=== PATIENT | female | born 1970 | race Caucasian/White ===

== ENCOUNTER 2024-04-20 11:36 | Outpatient (OUT) | payer OTHER, SELFPAY ==
[2024-04-20 12:58] LABS: Estimated Average Glucose 108 mg/dL; Glycohemoglobin A1C 5.4 % (4.5-6.2)
[2024-04-20 13:12] LABS: Alanine Aminotransferase 30 U/L (14-59); Albumin Level 3.6 g/dL (3.4-5.0); Alkaline Phosphatase 100 U/L (46-116); Aspartate Amino Transferase 22 U/L (15-37); BUN Creatinine Ratio 26.7; Bilirubin Direct <0.1 mg/dL (0.0-0.2); Bilirubin Total 0.2 mg/dL (0.2-1.0); Calcium 9.4 mg/dL (8.5-10.1); Carbon Dioxide 28.6 mmol/L (21.0-32.0); Chloride 108 mmol/L (98-107); Chol HDL Ratio 4.6; Cholesterol 176 mg/dL (<=200); Estimated GFR (African America >60 (>=60 mL/min/1.73m^2); Estimated GFR (Non-African Ame 57 (>=60 mL/min/1.73m^2); Globulin 3.7 g/dL; Glucose 93 mg/dL (74-106); HDL Cholesterol 38 mg/dL (40-60); Potassium 3.6 mmol/L (3.5-5.1); Sodium 143 mmol/L (136-145); Thyroid Stimulating Hormone 5.143 uIU/mL (0.358-3.740); Total Protein 7.3 g/dL (6.4-8.2); Triglycerides 199 mg/dL (<=150); VLDL CHOLESTEROL 39.8 mg/dL
[2024-04-20 13:22] LABS: Basophils Absolute Auto 0.1 10^3/uL (0.0-0.1); Basophils Percent Auto 0.8 % (0.2-2.0); Eosinophils Absolute Auto 0.4 10^3/uL (0.0-0.7); Eosinophils Percent Auto 4.1 % (0.9-7.0); Hematocrit 45.5 % (36.0-48.0); Immature Granulocytes Abs Auto 0.02 10^3/uL (0.00-0.03); Immature Granulocytes Pct Auto 0.2 % (0.0-0.5); Lymphocytes Absolute Auto 3.5 10^3/uL (1.2-3.8); Lymphocytes Percent Auto 35.7 % (20.5-60.0); Mean Corpuscular Hemoglobin 29.4 pg (26.7-34.0); Mean Corpuscular Volume 89.2 fL (81.0-99.0); Monocytes Absolute Auto 0.9 10^3/uL (0.3-0.8); Monocytes Percent Auto 8.7 % (1.7-12.0); Neutrophils Absolute Auto 4.9 10^3/uL (1.4-6.5); Neutrophils Percent Auto 50.5 % (43.0-75.0); Platelet Count 256 10^3/uL (150-450); Red Cell Distribution Width 12.8 % (11.0-15.0); White Blood Count 9.8 10^3/uL (4.0-11.0)
== END 2024-04-20 11:37 | disposition home or self-care (01) ==
LOC: LAB 11:41
PROVIDERS: PCP Family Medicine; Visit Provider Family Medicine
DX: Z00.00 Encounter for general adult medical examination without abnormal findings (principal)
CPT/HCPCS: 36415; 80048; 80061; 80076; 83036; 84443; 85025

== ENCOUNTER 2025-02-12 19:48 | Emergency (ER) | payer OTHER, SELFPAY ==
--- OUTSIDE RECORDS SUMMARY | 2017-03-31 06:55 | XMS_ITS | Continuity of Care Document ---
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 [address] [place] [address], [id number] , [place]. tel:[phone] OFFICE/OUTPAT IENT VISIT, EST [facility], [address] [place] [address], [id number], tel:[phone] [facility] No Information 0 Jacey Hay. [address] [place] [place], [place], [id number] , [place]. tel: [phone] EST OFFICE VISIT LEVEL 3 [facility], [address] [place] [address], [id number], [place] tel:[phone] [facility] rash (chief complaint)N EEDS ORDER FOR TITERS (chief complaint) HeadacheContact dermatitis and other eczema, unspecified causeContact dermatitis and other eczema, unspecified causeRoutine general medical examination at a health care facility 0 Gallo Lopez. [address] [place] [address], [id number]. tel: [phone] OFFICE/OUTPAT IENT VISIT, [facility], [address] [place] [address], [id number], [place] tel:[phone] [facility] No Information 0 Jacey Hay. [address], [place], [id number] , [place]. tel: [phone] [facility], [address] [place] [address], [id number], [place] tel:[phone] [facility] No Information 0 Jacey Hay. [address] [place] [address], [id number] , [place]. tel: [phone] PREV VISIT, NEW, AGE 18-39 [facility], [address] [place] [address], [id number], [place] tel:[phone] [facility] physical (school) (chief complaint) Routine general medical examination at a health care facilityRoutine general medical examination at a health care facility 0 Gallo Lopez. [address] [place] [address], [id number]. tel:[phone] Family History Family Member Type Diagnosis Age [...] Record Payers Payer name Insurance type Covered alliance party ID Authoriza tion(s) No Information Social History Type Description Quantity Date Captured Comments Sex Female Smoking Status No Information Chief Complaint And Reason For Visit No Information Reason For Referral Reason For Referral No Information Plan Of Treatment Date Type Action Status Goal H&P. Due on due Goal TD Vaccine. Due on 10 due History Of Present Illness Encounter Date [...]
[2025-02-12 19:57] VITALS: BP 147/91; PULSE 94; TEMP 36.6; O2SAT 100; BMI 32.2
--- NOTE | 2025-02-12 20:36 | CT_ITS ---
The [address] [address] Patient Name: YAJAIRA BAKER MRN: [id number] date: 1970 Sex: F Assigned Patient Location: ER Current Patient Location: ED.MAIN Accession/Order Number: [id number] Exam Date: 02/12/2025 21:12 Report Date: 02/12/2025 21:59 At the request of: CATHRYN CODY MD Procedure: CT abdomen pelvis w con CT ABDOMEN AND PELVIS WITH INTRAVENOUS CONTRAST: CLINICAL HISTORY: LLQ pain COMPARISON: None TECHNIQUE: Spiral images were obtained through the abdomen and pelvis following the administration of intravenous contrast. This CT exam was performed using one or more following dose reduction techniques: Automated exposure control, adjustment of the mA and/or kV according to patient size, or use of iterative reconstruction technique. FINDINGS: Lung Bases: [No focal opacity. Subpleural nodularity noted up to 3 mm in size] Organs:Cystic changes involving the liver. Subcentimeter liver hypodensities too small for adequate characterization with statistically represent cysts. Otherwise the liver, spleen, adrenals, kidneys, and pancreas are unremarkable.[ GI: No bowel obstruction. Mild retained stool. Distal colon is collapsed/underdistended neck 12 x 20. No pericolonic fluid changes.[ Pelvis:[Heterogeneous appearance uterus likely due to multifocal fibroids. Bilateral adnexal follicles. Bladder unremarkable.] Peritoneum/Retroperitoneum:Tiny fat-containing umbilical hernia. No free air or free fluid. Aorta is unremarkable caliber.[ Abd wall/Bones:No suspicious osseous lesion. Degenerative changes. Mild levocurvature.[ CT/CT abdomen pelvis w con IMPRESSION: Negative acute inflammatory process or bowel obstruction Heterogeneous uterus likely due to multifocal fibroids. Impression dictated by: Kamron Hodges M.D. 02/12/2025 9:59 PM Dictation Location: [place] [address] Electronically authenticated by: [id number] Y Date: 02/12/2025 21:59
--- NOTE | 2025-02-12 20:37 | ED.ABDPAIN1 ---
HPI - Abdominal Pain General Chief Complaint: Abdominal Pain Stated Complaint: PAIN IN LEFT LOWER QUADRANT Time Seen by Provider: 02/12/25 19:55 Source: patient Mode of arrival: walk-in History of Present Illness HPI narrative: presents complaining of LLQ pain that started today associated with nausea. No vomiting or diarrhea. No fever or urinary symptoms.Denies past history of similar pain Related Data Allergies Allergy/AdvReac Type Severity Reaction Status Date / Time sumatriptan (From Imitrex) AdvReac Mild Migraine Verified 02/12/25 19:57 Review of Systems ROS Status of ROS 10 or more systems reviewed and unremarkable except as noted in history and below PFSH PFSH Social History Little interest or pleasure in doing things: not at all Feeling down, depressed, or hopeless: not at all Exam Constitutional Vital Signs, click to edit/add: Last Vital Signs Temp 97.9 F 02/12/25 19:57 Pulse 94 H 02/12/25 19:57 Resp 16 02/12/25 19:57 BP 147/91 H 02/12/25 19:57 Pulse Ox 100 02/12/25 19:57 O2 Del Method Room Air 02/12/25 19:57 Common normals: no apparent distress, average body habitus, oriented x3, no limitations, healthy appearing and alert HENOR Common normals: normocephalic and head/scalp atraumatic Eye Common normals: EOMs intact bilaterally and conjunctivae normal Respiratory Common normals: normal respiratory effort, no retractions, no use of accessory muscles and clear to auscultation bilaterally Cardio Common normals: regular rate, regular rhythm, S1 normal heart sound and S2 normal heart sound GI Common normals: Normal to inspection, nondistended, normoactive bowel sounds present and soft to palpation Other: mild LLQ tenderness. No guarding Extremity Common normals: normal to inspection and full ROM Neuro Common normals: oriented x3, CN's II-XII intact bilaterally, moves all extremities and no focal motor deficits Psych Appearance: grossly normal Course Vital Signs Vital signs: Vital Signs Temperature 97.9 F 02/12/25 19:57 Pulse Rate 94 H 02/12/25 19:57 Respiratory Rate 16 02/12/25 19:57 Blood Pressure 147/91 H 02/12/25 19:57 Pulse Oximetry 100 02/12/25 19:57 Oxygen Delivery Method Room Air 02/12/25 19:57 Temperature 97.9 F 02/12/25 19:57 Pulse Rate 94 H 02/12/25 19:57 Respiratory Rate 16 02/12/25 19:57 Blood Pressure 147/91 H 02/12/25 19:57 Pulse Oximetry 100 02/12/25 19:57 Oxygen Delivery Method Room Air 02/12/25 19:57 MDM - Abdominal Pain MDM Narrative Medical decision making narrative: presents with left lower quad abdominal pain. No fever. Exam with mild tenderness. labs with elevated WBC and pyuria. Patient treated with fentanyl and Toradol. Given dose of Rocephin and discharged home on bactrimds Lab Data Labs: Lab Results 02/12/25 02/12/25 Range/Units 20:18 20:20 WBC 13.5 H (4.0-11.0) 10^3/uL RBC 5.18 (4.20-5.40) 10^6/uL Hgb 15.1 (12.0-16.0) g/dL Hct 45.6 (36.0-48.0) % MCV 88.0 (81.0-99.0) fL MCH 29.2 (26.7-34.0) pg MCHC 33.1 (29.9-35.2) g/dL RDW 13.1 (11.0-15.0) % Plt Count 255 (150-450) 10^3/uL MPV 10.8 (9.5-13.5) fL Neut % (Auto) 75.6 H (43.0-75.0) % Lymph % (Auto) 13.9 L (20.5-60.0) % [place] % (Auto) 7.3 (1.7-12.0) % Eos % (Auto) 2.4 (0.9-7.0) % Baso % (Auto) 0.4 (0.2-2.0) % Neut # (Auto) 10.2 H (1.4-6.5) 10^3/uL Lymph # (Auto) 1.9 (1.2-3.8) 10^3/uL [place] # (Auto) 1.0 H (0.3-0.8) 10^3/uL Eos # (Auto) 0.3 (0.0-0.7) 10^3/uL Baso # (Auto) 0.1 (0.0-0.1) 10^3/uL Abs Immat Gran (auto) 0.05 H (0.00-0.03) 10^3/uL Imm/Tot Granulo (auto) 0.4 (0.0-0.5) % Sodium 139 (136-145) mmol/L Potassium 3.4 L (3.5-5.1) mmol/L Chloride 106 (98-107) mmol/L Carbon Dioxide 23.3 (21.0-32.0) mmol/L Anion Gap 13.1 BUN 13.0 (7.0-18.0) mg/dL Creatinine 0.72 (0.55-1.02) mg/dL Est GFR ( Amer) >60 (>=60 mL/min/1.73m^2) Est GFR (Non-Af Amer) >60 (>=60 mL/min/1.73m^2) BUN/Creatinine Ratio 18.1 Glucose 101 (74-106) mg/dL Lactate 1.7 (0.4-2.0) mmol/L Calcium 9.3 (8.5-10.1) mg/dL Total Bilirubin 0.4 (0.2-1.0) mg/dL AST 23 (15-37) U/L ALT 41 (14-59) U/L Alkaline Phosphatase 155 H (46-116) U/L Total Protein 7.4 (6.4-8.2) g/dL Albumin 3.7 (3.4-5.0) g/dL Globulin 3.7 g/dL Albumin/Globulin Ratio 1.0 Lipase 24.0 (16.0-77.0) U/L Urine Color Yellow (YELLOW) Urine Clarity Clear (CLEAR) Urine pH 7.0 (5.0-9.0) Ur Specific [place] 1.025 (1.005-1.025) Urine Protein Trace (NEG/TRACE) mg/dL Urine Glucose (UA) Negative (NEGATIVE) mg/dL Urine Ketones Negative (NEGATIVE) mg/dL Urine Occult Blood Small A (NEGATIVE) Urine Nitrite Negative (NEGATIVE) Urine Bilirubin Negative (NEGATIVE) Urine Urobilinogen 0.2 (0.2-1.0) EU/dL Ur Leukocyte Esterase Negative (NEGATIVE) Urine RBC 2-5 A (0-2) #/HPF Urine WBC 5-10 A (NONE SEEN) #/HPF Ur Squamous Epith Cells Few A (NONE/RARE) #/LPF Urine Crystals None seen (None Seen) #/HPF Urine Bacteria Small A (NONE SEEN) #/HPF Urine Casts Seen A (NONE SEEN) #/LPF Hyaline Casts Few Urine Mucus Moderate A (NONE SEEN) Ur Culture Indicated? Yes-[facility] [place] Plan Discharge Chief Complaint: Abdominal Pain Clinical Impression: Abdominal pain, UTI (urinary tract infection) Patient Disposition: Home, Self-Care Print Language: Palestinian Instructions: Urinary Tract Infection in Women (ED), Abdominal Pain (ED) Additional Instructions: drink plenty of fluids and follow up with your doctor this week for recheck Referrals: Usama Billy MD [Primary Care Provider, Family Practice] - 1 week
[2025-02-12 20:43] LABS: Hematocrit 45.6 % (36.0-48.0); Hemoglobin 15.1 g/dL (12.0-16.0); Immature Granulocytes Abs Auto 0.05 10^3/uL (0.00-0.03); Immature Granulocytes Pct Auto 0.4 % (0.0-0.5); Lymphocytes Absolute Auto 1.9 10^3/uL (1.2-3.8); Mean Corpuscular HGB Conc 33.1 g/dL (29.9-35.2); Mean Corpuscular Hemoglobin 29.2 pg (26.7-34.0); Mean Corpuscular Volume 88.0 fL (81.0-99.0); Platelet Count 255 10^3/uL (150-450); Red Blood Count 5.18 10^6/uL (4.20-5.40); White Blood Count 13.5 10^3/uL (4.0-11.0)
[2025-02-12 20:46] LABS: Glucose Urine UA NEGATIVE (NEGATIVE)
[2025-02-12] MEDS: 0.9 % SODIUM CHLORIDE 1,000 ML 999 ML IV (20:47)
[2025-02-12] MEDS: KETOROLAC TROMETHAMINE 30 MG/ML VIAL IVP (20:47)
--- OUTSIDE RECORDS SUMMARY | 2025-02-12 20:47 | XMS_ITS | Clinical Summary ---
Author Organization [facility] Address [address] [place] [address] Care Team Providers Care Concrete Laborer Name Role Phone Usama Billy MD Primary Care Provider [phone] Allergies Active AllergyReactionsCriticalityNoted LiyoUddttgnhCvzjhcxjabmEwjjAym04/17/2023 Medications MedicationSigDispense QuantityRefillsLast FilledStart DateEnd DateStatus KETOROLAC TROMETHAMINE PO Ketorolac TromethamineActive albuterol HFA 90 mcg/act inhaler Indications:SOB (shortness of breath) on exertionInhale 2 puffs every 4 (four) hours if needed for wheezing or shortness of breath 18 g ctive desonide (DesOwen) 0.05 % cream Indications:Chronic eczemaAPPLY TO AFFECTED AREA 3 TIMES A DAY 15 g 4Active mpsdnqpaso-oogfscipmmeas-bpqbroix 50-325-40 MG tablet Indications:Migraine without aura and without status migrainosus, not intractableTake 1 tablet by mouth 4 (four) times a day as needed for headaches 60 tablet 5Active cyproheptadine (Periactin) 4 MG tablet Indications:Migraine without aura and without status migrainosus, not intractableTAKE 2 TABLETS BY MOUTH DAILY AT BEDTIME 180 tablet 5Active topiramate (Topamax) 100 MG tablet Indications:Chronic migraine without aura without status migrainosus, not intractableTAKE 1 TABLET (100 MG) BY MOUTH IN THE MORNING AND BEFORE BEDTIME 180 tablet 5Active ibuprofen 800 MG tablet Indications:Migraine without aura and without status migrainosus, not intractableTAKE 1 TABLET (800 MG) BY MOUTH 3 TIMES A DAY NEEDED FOR MODERATE PAIN 90 tablet 5Active Active Problems ProblemNoted DateDiagnosed DateSubclinical wwvbkviyfkcqts33/16/2025Dyshidrotic ezvqkb7005/25/2023 Assessment & Plan (04/20/2024 12:11 PM EST): Worsening rash and treat with prednisone. Use cream PRN. Assessment & Plan (10/12/2023 3:33 PM EDT): Occasional rash and use cream PRN. Migraine without aura and without status migrainosus, not yzzknzraguw29/20/2024 Assessment & Plan (04/20/2024 12:11 PM EST): MADRID unchanged and continue periactin and topamax. Use fioricet PRN. Assessment & Plan (10/12/2023 3:33 PM EDT): MADRID unchanged and will attempt prior auth for qulipta. Continue periactin and topamax. Use fioricet PRN. Assessment & Plan (05/25/2023 1:42 PM EST): MADRID unchanged and patient will try assistance program for qulipta. Continue periactin and topamax. Use fioricet PRN. Vitamin D kzwwxqzlmu25/20/2024ilateral carpal tunnel qmmvuwxe08/20/2024lass 1 obesity due to excess calories without serious comorbidity with body mass index (BMI) of 31.0 to 31.9 in adult05/25/2023Seasonal allergic rhinitis due to pollen 05/25/2023 Assessment & Plan (10/12/2023 3:33 PM EDT): Symptoms tolerable without medication and monitor. Assessment & Plan (05/25/2023 1:42 PM EST): Symptoms controlled with medication and continue. SOB (shortness of breath) on /20/2024 Assessment & Plan (05/25/2023 1:42 PM EST): SOB and cough for weeks and likely COPD. Check PFTs. Start albuterol PRN. Tobacco user05/25/2023 Assessment & Plan (05/25/2023 1:43 PM EST): Smoked for over 30 years and check LDCT chest. Stressed need to stop smoking. Annual physical exam05/25/2023 Assessment & Plan (04/20/2024 12:13 PM EST): Due for labs. Discussed proper diet and regular aerobic exercise. Need aerobic exercise 5-6 days a week for 30 minutes at a time. Smaller portions and limit total calories. Cologuard normal July 2021. Tetanus every 10 years. Advised not to smoke. Immunizations ImmunizationAdministration DatesNext [id number]/27/2010 Family History Medical HistoryRelationNameCommentsRheum arthritisBrotherCirrhosisFather HepatitisFatherHepatitis CHypertensionFatherNo Known ProblemsSonRelationName StatusCommentsBrother1 brotherFatherAliveMotherAliveSon2 sons Social History Tobacco UseTypesPacks/DayYears UsedDateSmoking Tobacco: Every EulLtxzyrramu444 Smokeless Tobacco: Never Comments:11-20 cigs/day Alcohol UseStandard Drinks/WeekCommentsNot Currently0 (1 standard drink = 0.6 oz pure alcohol)Humiliation, Afraid, Rape, and Kick questionnaireAnswerDate RecordedWithin the last year, have you been afraid of your partner or ex-partner?No05/18/2023Within the last year, have you been humiliated or emotionally abused in other ways by your partner or ex-partner?No05/18/2023 Within the last year, have you been kicked, hit, slapped, or otherwise physically hurt by your partner or ex-partner?No05/18/2023Within the last year, have you been raped or forced to have any kind of sexual activity by your part ner or ex-partner?No05/18/2023Social Connection and Isolation PanelAnswerDate RecordedIn a typical week, how many times do you talk on the phone with family, friends, or neighbors?Once a week05/18/2023How often do you get together with friends or relatives?Never05/18/2023How often do you attend bahai or temple services?Never05/18/2023o you belong to any clubs or organizations such as bahai groups, unions, fraternal or athletic groups, or school groups?No 05/18/2023How often do you attend meetings of the clubs or organizations you belong to?Never05/18/2023re you , , , , never , or living with a partner?Eckulvx6305/18/2023UDIT-CAnswerDate RecordedQ1: How often do you have a drink containing alcohol?Never05/18/2023Q2: How many drinks containing alcohol do you have on a typical day when you are drinking? Patient does not drink05/18/2023Q3: How often do you have six or more drinks on one occasion?Never05/18/2023Overall Financial Resource Strain (CARDIA)AnswerDate RecordedHow hard is it for you to pay for the very basics like food, housing, medical care, and heating?Not hard at all05/18/2023HQ-2AnswerDate Recorded Patient Health Questionnaire-2 [facility]958[facility] [place] [facility] - Occupational Stress QuestionnaireAnswerDate RecordedDo you feel stress - tense, restless, nervous, or anxious, or unable to sleep at night because your mind is troubled all the time - these days?Only a ariwzx6405/18/2023Exercise Vital SignAnswerDate RecordedOn average, how many days per week do you engage in moderate to strenuous exercise (like a brisk walk)?Patient kbivflib12/13/2024On average, how many minutes do you engage in exercise at this level?Patient jburpzst72/13/2024Hunger Vital SignAnswerDate RecordedWithin the past 12 months, you worried that your food would run out before you got the money to buymore. Never true05/18/2023Within the past 12 months, the food you bought just didn't last and you didn't have money to get more.Never true05/18/2023RAPARE - TransportationAnswerDate RecordedIn the past 12 months, has lack of transportation kept you from medical appointments or from getting medications?No 05/18/2023In the past 12 months, has lack of transportation kept you from meetings, work, or from getting things needed for daily living?No05/18/2023 Housing Stability Vital SignAnswerDate RecordedIn the last 12 months, was there a time when you were not able to pay the mortgage or rent on time?No05/18/2023 Number of Places Lived in the Last YearNot on file05/18/2023In the last 12 months, was there a time when you did not have a steady place to sleep or slept in [place] (including now)?No05/18/2023CommentsUnknownSex and Gender InformationValueDate RecordedSex Assigned at BirthNot on fileLegal SexFemale 06/17/2022 7:05 PM EDTGender IdentityNot on fileSexual OrientationNot on file Last Filed Vital Signs Vital SignReadingTime TakenCommentsBlood Bedjtqrm412/76004/30/2024 9:11 AM EST Hqrkh854904/30/2024 9:11 AM OMJLfrewzclhor64.9 ??C (96.6 ??F)04/30/2024 9:11 AM ESTRespiratory Arbr599404/20/2024 10:39 AM ESTOxygen Vumtshujnx62%04/30/2024 9:11 AM ESTInhaled Oxygen Concentration--Gljdey85.3 kg (177 lb)04/20/2024 10:39 AM RQIJbepmu199.8 cm (5' 2.5 )04/20/2024 10:39 AM ESTBody Mass Index31.8604/20/2024 10:39 AM EST Plan of Treatment Not on file Care Teams Team MemberRelationshipSpecialtyStart DateEnd Date Usama Billy MD PCP - GeneralFamily Medicine05/05/23
--- OUTSIDE RECORDS SUMMARY | 2025-02-12 20:47 | XMS_ITS | CCD ---
Author Organization [facility] Care Team Providers Care Proposal Coordinator Name Role Phone DR USAMA WATTS Admitting Unavailable MAC, DR USAMA Aranda Attending Unavailable MAC, DR USAMA Aranda Primary Care Unavailable WEST, DR JASMINE Estevez Consulting Unavailable MAC, DR USAMA Aranda Consulting Unavailable Usama Watts MD Primary Care Provider ALICIA BROWN Attending Unavailable AMAURY MADDOX Attending Unavailable MAC, USAMA Attending Unavailable MAC, USAMA Attending Unavailable USAMA WATTS Attending Unavailable Allergies Allergy ClassificationReported Allergen(s)Allergy TypeDate of OnsetReaction(s) Facility (1 source)PlasminDrug Ngchuee38-21-6628Tst [facility] Repository (6 sources)SUMAtriptanDrug Ngjcqgu59-16-7184OufeQK[facility] Medications Current Medications MedicationDrug Class(es)DatesSig (Normalized)Sig (Original)acetaminophen 325 mg / butalbital 50 mg / caffeine 40 mg oral tablet (8 sources)Barbiturate, Central Nervous System Stimulant, MethylxanthineStart: 29-08-0645sylg 1 tablet by mouth four times daily as needed for headache bqajfdqnez-jjjwedtcjtnwq-kvqpgqtl 50-325-40 MG tablet Indications: Migraine without aura and without status migrainosus, not intractable (CMS/HCC) Take 1 tablet by mouth 4 (four) times a day as needed for headaches 60 tablet 2 04/20/2024 ActiveStart: 58-38-8255yikn 1 tablet by mouth four times daily as needed for slygsjnfqcysbpaxek-udhnjpepockys-evwtrcie 50-325-40 MG tablet Indications: Migraine without aura and without status migrainosus, not intractable (CMS/HCC) Take 1 tablet by mouth 4 (four) times a day as needed for headaches 60 tablet 2 04/20/2024 Active End: 76-66-3787kuwkalwgty-acetaminophen-caffeine (Esgic) 50-325-40 MG capsule Dusyqiekjz-RYTX-Rjfqnldh 04/20/2024 [id number] 200 actuat albuterol 0.09 mg/actuat metered dose inhaler (6 sources)beta2-Adrenergic AgonistStart: 84-32-1322gqaz 2 puff(s) by inhalation every four hours for wheezingalbuterol HFA 90 mcg/act inhaler Indications: SOB (shortness of breath) on exertion Inhale 2 puffs every 4 (four) hours if needed for wheezing or shortness of breath 18 g 3 05/25/2023 ActiveAtogepant (Qulipta) 10 MG tablet (3 sources)Start: 10-12-2023 End: 45-06-7003dkmq 1 tablet by mouth once dailyAtogepant (Qulipta) 10 MG tablet Indications: Migraine without aura and without status migrainosus,not intractable (CMS/HCC) Take 1 tablet by mouth Daily 30 tablet 3 10/12/2023 04/20/2024 DiscontinuedStart: 79-83-3948sqap 1 tablet by mouth once daily Atogepant (Qulipta) 10 MG tablet Indications: Migraine without aura and without status migrainosus,not intractable (CMS/HCC) Take 1 tablet by mouth Daily 30 tablet 3 10/12/2023 Activecyproheptadine hydrochloride 4 mg oral tablet (6 sources)Start: 11-01-2023 End: 21-59-3823krkm 2 tablets by mouth at bedtimecyproheptadine (Periactin) 4 MG tablet Indications: Migraine without aura and without status migrainosus, not intractable (CMS/HCC) Take 2 tablets (8 mg) by mouth at bedtime 60 tablet 11 11/01/2023 10/31/2024 Activedesonide 0.5 mg/ml topical cream (6 sources)CorticosteroidStart: 33-25-2628rdbrmcvr (DesOwen) 0.05 % cream Indications: Chronic eczema APPLY TO AFFECTED AREA 3 TIMES A DAY 15g 3 02/16/2024 Activeibuprofen 800 mg oral tablet (8 sources)Nonsteroidal Anti-inflammatory DrugStart: 87-02-3650uhbv 1 tablet by mouth three times daily as needed for painibuprofen 800 MG tablet Indications: Migraine without aura and without status migrainosus, not intractable (CMS/HCC) Take 1 tablet (800 mg) by mouth 3 (three) times a day as needed for moderate pain 90 tablet 3 04/20/2024 ActiveStart: 93-14-2767lfis 1 tablet by mouth three times daily as needed for painibuprofen 800 MG tablet Indications: Migraine without aura and without status migrainosus, not intractable (CMS/HCC) Take 1 tablet (800 mg) by mouth 3 (three) times a day as needed for moderate pain 90 tablet 3 04/20/2024 ActiveStart: 07-29-2022 End: 52-01-7674eshq 1 tablet by mouth three times daily as neededibuprofen 800 MG tablet Take 800 mg by mouth 3 (three) times a day as needed 07/29/2022 04/20/2024 Discontinued (Reorder)Ketorolac (6 sources)Nonsteroidal Anti-inflammatory Drug, Cyclooxygenase Inhibitor KETOROLAC TROMETHAMINE PO Ketorolac Tromethamine ActivemethylPREDNISolone (2 sources)CorticosteroidStart: 04-30-2024 End: 81-87-0254rpyvhpKETBOYTdbfdk (Medrol Dospak) 4 MG tablets Indications: Cough, unspecified type , Viral upper respiratory illness Follow schedule on package instructions 21 tablet 04/30/2024 05/07/2024 ActivepredniSONE 50 mg oral tablet (3 sources)Start: 04-20-2024 End: 10-75-2497lbld 1 tablet by mouth once dailypredniSONE (Deltasone) 50 MG tablet Indications: Dyshidrotic eczema Take 1 tablet (50 mg) by mouth Daily for 6 days 6 tablet 04/20/2024 04/26/2024 Activetopiramate 100 mg oral tablet (6 sources)Start: 01-13-2024 End: 51-69-4278tsec 1 tablet by mouth in the morningtopiramate (Topamax) 100 MG tablet Indications: Chronic migraine without aura without status migrainosus, not intractable (CMS/HCC) Take 1 tablet (100 mg) by mouth in the morning and 1 tablet (100 mg) before bedtime. 60 tablet 5 01/13/2024 01/12/2025 Active Problems Active Problems Problem ClassificationProblemDateDocumented DateEpisodic/ChronicHeadache; including migraine (8 sources)Migraine without aura, not refractory ; Translations: [Migraine without aura, not intractable, without status migrainosus]Onset: 05-25-2023 03-37-7273BzgzdjdHxrpisyzutf deficiencies (6 sources)Vitamin D deficiency; Translations: [Vitamin D deficiency, unspecified]Onset: 017217-24-8282KogseceStjok lower respiratory disease (2 sources)Cough; Translations: [Cough, unspecified type]49-86-0922XjzzikswWvjpt nervous system disorders (6 sources)Bilateral carpal tunnel syndrome; Translations: [Carpal tunnel syndrome, bilateral upper limbs]Onset: 322514-33-4778ZpuoiacMxdbp nutritional; endocrine; and metabolic disorders (1 source)Body mass index 30+ - obesity; Translations: [Obesity, unspecified] Onset: 701753-47-6291GdahverWbtas nutritional; endocrine; and metabolic disorders (5 sources)Obesity caused by energy imbalance; Translations: [Class 1 obesity due to excess calories without serious comorbidity with body mass index (BMI) of 31.0 to 31.9 in adult]Onset: 379301-67-9588PsmneabBffmv screening for suspected conditions (not mental disorders or infectious disease) (1 source)Encounter for screening mammogram for malignant neoplasm of breast; Translations: [ENC SCR MAMMO MALIG NEOPLASM BREAST]Onset: 89-62-4616Eyatdsfg Other upper respiratory disease (6 sources)Allergic rhinitis due to pollen; Translations: [Allergic rhinitis due to pollen]Onset: 205534-92-4098JgfgmanRnixn upper respiratory infections (2 sources)Viral upper respiratory tract infection; Translations: [Acute upper respiratory infection, unspecified]79-87-8683VxpgitngRlprqlw disorders (2 sources)Subclinical hypothyroidism; Translations: [Other specified hypothyroidism]Onset: hronic Past or Other Problems Problem ClassificationProblemDateDocumented DateEpisodic/ChronicOther lower respiratory disease (6 sources)Dyspnea on exertion; Translations: [Shortness of breath]Onset: 386749-33-9832RhsnbzntZghvk skin disorders (8 sources)Vesicular eczema; Translations: [Dyshidrosis [pompholyx]]Onset: 137451-10-5701MfeeeqagZrornzwj codes; unclassified (6 sources)Tobacco user; Translations: [Tobacco use]Onset: 665856-15-8744 Episodic Results Test NameValueInterpretationReference RangeFacilityLaboratory - Microbiology and Antimicrobial susceptibilityon 01-02-0569MMAW-CoV-2 (COVID-19) RNA RICK+probe Ql (Unsp spec)NegativeNOWA HealthcareNo Panel Informationon 05-51-1159CQW ANegative NOMS HealthcareFLU BNegativeNOWA HealthcareInterpretation and review of laboratory resultsNormalNOMissouri Baptist Medical Center HealthcareALL CBC WITH AUTO DIFFon 96-37-5085DBJKSYSAD ABSOLUTE AUTO0.1NOMS HealthcareBasophils/100 WBC (Bld)0.8 % 0.2 - 2.0 %NOMOzarks Medical CenterEosinophils/100 WBC (Bld)4.1 %0.9 - 7.0 %[facility] HealthErythrocyte distribution width (RBC) [Ratio]12.8 %11.0 - 15.0 %NOMOzarks Medical CenterHematocrit (Bld) [Volume fraction]45.5 %36.0 - 48.0 %[facility] Hemoglobin (Bld) [Mass/Vol]15 g/dL12.0 - 16.0 g/dLCarondelet HealthIMMATURE GRANULOCYTES ABS AUTO0.02NOFitzgibbon HospitalImmature granulocytes/100 WBC (Bld)0.2 % 0.0 - 0.5 %[facility] HealthcareInterpretation and review of laboratory results AbnormalNOWA HealthcareLYMPHOCYTES ABSOLUTE AUTO3.5NOMS [facility] Lymphocytes/100 WBC (Bld)35.7 %20.5 - 60.0 %[facility] CenterH (RBC) [Entitic mass]29.4 pg26.7 - 34.0 pgLafayette Regional Health CenterHC (RBC) [Mass/Vol]33 g/dL29.9 - 35.2 g/dLLafayette Regional Health CenterV (RBC) [Entitic vol]89.2 fL81.0 - 99.0 fLCarondelet Health MONOCYTES ABSOLUTE AUTO0.9HighCarondelet HealthMonocytes/100 WBC (Bld)8.7 %1.7 - 12.0 %NOMS HealthcareNEUTROPHILS ABSOLUTE AUTO4.9NOMS HealthcareNeutrophils/100 WBC (Bld)50.5 %43.0 - 75.0 %NOMS HealthcarePlatelet mean volume (Bld) [Entitic vol]11 fL9.5 - 13.5 fLNOMS HealthcareTBH EO #0.4NOMS HealthcareTBH IEO736RDYR HealthcareTB RBC5.1NOMS HealthcareTB WBC9.8NOMS HealthcareCLINISYNCNOMS HealthcareCBC AUTO DIFFon [id number] #0.1 103/ulNormal0.0-0.1The [facility] HospitalComment on above:Performed By: #### CBC #### [facility] [address] [place] [address] Dr. Zi LujanBasophils/100 WBC (Bld)0.6 %Normal0.2-2.0[facility] Comment on above:Performed By: #### CBC #### [facility] [address] [address] [address] Zi Jalloh #0.4 103/ulNormal0.0-0.7The [facility] HospitalComment on above: Performed By: #### CBC #### [facility] [address] [place] [address] Dr. Zi Mosherosinophils/100 WBC (Bld)4.3 %Normal0.9-7.0[facility] Comment on above:Performed By: #### CBC #### [facility] [address] [address] [address] Zi Mosherrythrocyte distribution width (RBC) [Ratio]13.7 %Ubmkik43.0-15.0 [facility] CampusComment on above:Performed By: #### CBC #### [facility] [address] [place] [address] Dr. Zi LujanHematocrit (Bld) [Volume fraction]41.1 %Rcujfc95.0-48.0[facility] CampusComment on above:Performed By: #### CBC #### [facility] [address] [place], [place] [id number] Dr. Zi LujanHemoglobin (Bld) [Mass/Vol]12.9 g/oRYotmln76.0-16.0The [facility] HospitalComment on above:Performed By: #### CBC #### [facility] [address] [place] [address] Dr. Zi Hernández #0.03 10e3/ulNormal0.00-0.03The [facility] HospitalComment on above:Performed By: #### CBC #### [facility] [address] [place] [address] Dr. Zi Hernández %0.4 %Normal0.0-0.5The [facility] HospitalComment on above: Performed By: #### CBC #### [facility] [address] [place] [address] Dr. Zi Bain #2.5 103/ulNormal1.2-3.8The [facility] HospitalComment on above:Performed By: #### CBC #### [facility] [address] [place] [address] Dr. Zi Bainhocytes/100 WBC (Bld)29.0 %Ckcyvr40.5-60.0The [facility] HospitalComascension borg[facility] on above:Performed By: #### CBC #### [facility] [address] [place] [address] Dr. Zi SilvaUAL DIFF REQNONormalThe [facility] HospitalComment on above: Performed By: #### CBC #### [facility] [address] [place] [address] Dr. Zi Verma (RBC) [Entitic mass]27.6 mgEexfnh31.7-34.0The [facility] HospitalComment on above:Performed By: #### CBC #### [facility] [address] [place] [address] Dr. Zi Verma (RBC) [Mass/Vol]31.4 g/gPCwahle24.9-35.2The [facility] HospitalComment on above:Performed By: #### CBC #### [facility] [address] [address] [address] Zi VermaV (RBC) [Entitic vol]88.0 pGRtrmkr20.0-99.0The [facility]utement on above:Performed By: #### CBC #### [facility] [address] [place] [address] Dr. Zi Bueno #0.6 103/ulNormal0.3-0.8The [facility] HospitalComment on above:Performed By: #### CBC #### [facility] [address] [place] [address] Dr. Zi Jacquesocytes/100 WBC (Bld)7.2 %Normal1.7-12.0The [facility] Comment on above:Performed By: #### CBC #### [facility] [address] [place] [address] Dr. Zi LevyUT #5.0 103/ulNormal1.4-6.5The [facility] HospitalComment on above:Performed By: #### CBC #### [facility] [address] [place] [address] Dr. Zi Levyutrophils/100 WBC (Bld)58.5 %Klprsj28.0-75.0The [facility] Institutement on above:Performed By: #### CBC #### [facility] [address] [place] [address] Dr. Zi Pettitlet mean volume (Bld) [Entitic vol]10.3 fLNormal9.5-13.5The [facility] HospitalComment on above:Performed By: #### CBC #### [facility] [address] [place] [address] Dr. Zi LujanPLT260 103/faNsjnnn821-652Wki [facility] HospitalComment on above: Performed By: #### CBC #### [facility] [address] [place] [address] Dr. Zi LujanRBC4.67 106/ulNormal4.20-5.40The [facility] Institutement on above:Performed By: #### CBC #### [facility] [address] [address] [address] Zi LujanWBC8.5 103/ulNormal4.0-11.0The [facility] HospitalComment on above: Performed By: #### CBC #### [facility] [address] [address] [address] Zi LujanGLYCOHEMOGLOBIN A1Con 80-27-8931NUJ RECOMMENDATIONADA THERAPEUTIC TARGET 6.0 - 7.0 ACTION SUGGESTED > 7.0[facility] CenterComment on above:Performed By: #### A1C #### [facility] [address] [address] [address] Zi LujanGlucose [Mass/Vol]105 mg/dLNoMarietta Memorial HospitalComment on above:Performed By: #### A1C #### [facility] [address] [place] [address] Dr. Zi LujanHbA1c (Bld) [Mass fraction]5.3 %Normal<=6.0[facility] Comment on above:Performed By: #### A1C #### [facility] [address] [address] [address] Zi LujanLIPID PROFILEon 09-98-1089TJYO-HDL RATIO NORMSSelect Medical [facility]Health Rehabilitation HospitalComment on above:Result Comment: 3.3 - 4.4 LOW RISK 4.4 - 7.1 AVERAGE RISK 7.1 - 11.0 MODERATE RISK >11.0 HIGH RISKPerformed By: #### LIPID, BMP, TSH, LIVER #### [facility] [address] [address] [address] Zi LujanCholesterol [Mass/Vol]184 mg/dLNormal<=200The [facility] Comment on above:Performed By: #### LIPID, BMP, TSH, LIVER #### [facility] [address] [address] [address] Zi LujanCholesterol in HDL [Mass/Vol]39 mg/dLCritically fqd99-47Uli [facility] HospitalComment on above:Performed By: #### LIPID, BMP, TSH, LIVER #### [facility] [address] [address] [address] Zi Billingsesterol in LDL [Mass/Vol]106.8 mg/dLCleveland Clinic South Pointe Hospital on above:Performed By: #### LIPID, BMP, TSH, LIVER #### [facility] [address] [address] [address] Zi Mccall.total/Cholesterol in HDL [Mass ratio]4.7 {ratio} NormalThe [facility] HospitalComascension borg[facility] hospital on above:Performed By: #### LIPID, BMP, TSH, LIVER #### [facility] [address] [address] [address] Zi Hammer NORMAL> or = 60 mg/dl - LOW CARDIOVASCULAR RISK <40 mg/dl - HIGH CARDIOVASCULAR RISKCommunity Regional Medical CenterComascension borg[facility]-pipp hospital on above:Performed By: #### LIPID, BMP, TSH, LIVER #### [facility] [address] [place] [address] Dr. Zi Vo CALC NORMALSEE BELOWNoMarietta Memorial HospitalComment on above:Result Comment: <100 mg/dl OPTIMAL 100 - 129 mg/dl NEAR OR ABOVE OPTIMAL 130 - 159 mg/dl BORDERLINE HIGH 160 - 189 mg/dl HIGH >190 mg/dl VERY HIGH Performed By: #### LIPID, BMP, TSH, LIVER #### [facility] [address] [place] [address] Dr. Zi LujanTriglyceride [Mass/Vol]191 mg/dLCritically high<=150The [facility] on above:Performed By: #### LIPID, BMP, TSH, LIVER #### [facility] [address] [place] [address] Dr. Zi Salas CALC38.2 mg/dLNoMarietta Memorial HospitalComascension borg[facility]-pi[facility] hospital on above: Performed By: #### LIPID, BMP, TSH, LIVER #### [facility] [address] [place] [address] Dr. Zi Roper PROFILEon 63-37-6446Vjwkddk [Mass/Vol]3.5 g/dLNormal3.4-5.0 The [facility] HospitalComascension borg[facility] on above:Performed By: #### LIPID, BMP, TSH, LIVER #### [facility] [address] [place] [address] Dr. Zi LujanAlbumin/Globulin [Mass ratio]1.0 {ratio}NormalThe [facility] HospitalComment on above:Performed By: #### LIPID, BMP, TSH, LIVER #### [facility] [address] [place] [address] Dr. Zi Kingston [Catalytic activity/Vol]100 U/EGgpkvu77-614Hnz [facility] HospitalComment on above:Performed By: #### LIPID, BMP, TSH, LIVER #### [facility] [address] [place] [address] Dr. Zi Sawyer [Catalytic activity/Vol]40 U/IEkxoox09-72Uqr [facility] HospitalComment on above:Performed By: #### LIPID, BMP, TSH, LIVER #### [facility] [address] [place] [address] Dr. Zi Shi [Catalytic activity/Vol]20 U/IKbtuyw11-81Sil [facility] HospitalComment on above:Performed By: #### LIPID, BMP, TSH, LIVER #### [facility] [address] [place] [address] Dr. Zi Romero, CONJUGATED<0.3Vwcbvj1.0-0.3The [facility] HospitalComment on above:Performed By: #### LIPID, BMP, TSH, LIVER #### [facility] [address] [place] [address] Dr. Zi Antonioirubin [Mass/Vol]0.2 mg/dLNormal0.2-1.3TGerman Hospital on above:Performed By: #### LIPID, BMP, TSH, LIVER #### [facility] [address] [place] [address] Dr. Zi LujanGlobulin (S) [Mass/Vol]3.5 g/dLNormalThe [facility] HospitalComment on above:Performed By: #### LIPID, BMP, TSH, LIVER #### [facility] [address] [place] [address] Dr. Yilan ChangProtein [Mass/Vol]7.0 g/dLNormal6.1-8.2[facility] Comment on above:Performed By: #### LIPID, BMP, TSH, LIVER #### [facility] [address] [place], [place] [address] Dr. Zi LujanMG MAMM SCREEN 3D RUTH CADon [id number] MAMM SCREEN 3D RUTH CAD Patient: IRENE BAKER Exam Date: 07/17/2021 : 1970 Gender:F Ordering : DR USAMA WATTS . Admission #: [id number] Family : Order #: [id number] CLICK HERE TO VIEW EXAM RADIOLOGY REPORT PROCEDURE: MAMMOGRAM SCREENING 3D BILATERAL CAD COMPARISON: MG MAMM SCREEN RUTH W CAD, 10/28/2016. INDICATIONS: Screening mammography Calculator Name NCI Breast Cancer Risk Assessment Tool 5 Year Breast Cancer Risk 0.70% Lifetime Breast Cancer Risk 6.50% Personal Breast Cancer No Personal Ovarian Cancer No Treatments None Family Cancers None LOCATION: [facility] BREAST COMPOSITION: Heterogeneously dense,which may obscure small masses. FINDINGS: DIAGNOSTIC CATEGORY 2--BENIGN FINDING. NO CHANGE FROM COMPARISON. Scattered benign-appearing nodules are present. Scattered benign-appearing calcifications are present. Scattered benign-appearing lymph nodes are present. RIGHT BREAST: No significant suspicious finding. LEFT BREAST: No significant suspicious finding. RECOMMENDATIONS: ROUTINE MAMMOGRAM AND CLINICAL EVALUATION IN 12 MONTHS. PLEASE NOTE: A NORMAL MAMMOGRAM DOES NOT EXCLUDE THE POSSIBILITY OF BREAST CANCER. A CLINICALLY SUSPICIOUS PALPABLE LUMP SHOULD BE BIOPSIED. Dictated by: Jasmine Jay MD on 07/17/2021 at 11:46 Approved by: Jasmine Jay MD on 07/17/2021 at 11:53NoMarietta Memorial HospitalPROF CHEM 8 (BAS METB)on 50-01-4615Nffnm gap [Moles/Vol]11.3 mmol/LNormalWayne Healthcare Main CampusComment on above:Performed By: #### LIPID, BMP, TSH, LIVER #### [facility] [address] [place], [place] [address] Dr. Zi LujanCalcium [Mass/Vol]8.6 mg/dLNormal8.5-10.1[facility] Comment on above:Performed By: #### LIPID, BMP, TSH, LIVER #### [facility] [address] [address] [address] Zi LujanChloride [Moles/Vol]106 mmol/DIlqnxu54-364IbcWayne Healthcare Main Campus Comment on above:Performed By: #### LIPID, BMP, TSH, LIVER #### [facility] [address] [address] [address] Zi LujanCO2 [Moles/Vol]24.7 mmol/CHdpooi87.0-30.0The [facility] Comment on above:Performed By: #### LIPID, BMP, TSH, LIVER #### [facility] [address] [address] [address] Zi LujanCreatinine [Mass/Vol]0.92 mg/dLNormal0.52-1.04[facility] CampusComment on above:Performed By: #### LIPID, BMP, TSH, LIVER #### [facility] [address] [address] [address] Zi MosherGFR-AF FILIPINO>60Normal>=60The [facility] HospitalComment on above:Performed By: #### LIPID, BMP, TSH, LIVER #### [facility] [address] [place] [address] Dr. Zi Ashley-NON AF FILIPINO>60Normal>=60[facility] CampusComment on above:Performed By: #### LIPID, BMP, TSH, LIVER #### [facility] [address] [address] [address] Zi LujanGlucose [Mass/Vol]96 mg/hBEwicry90-858NapWayne Healthcare Main Campus Comment on above:Performed By: #### LIPID, BMP, TSH, LIVER #### [facility] [address] [address] [address] Zi LujanPotassium [Moles/Vol]4.0 mmol/LNormal3.4-5.0The [facility] Comment on above:Performed By: #### LIPID, BMP, TSH, LIVER #### [facility] [address] [address] [address] Zi LujanSodium [Moles/Vol]138 mmol/CHuennu503-952Rpv [facility] Comment on above:Performed By: #### LIPID, BMP, TSH, LIVER #### [facility] [address] [place] [address] Dr. Zi Pagan nitrogen [Mass/Vol]15.0 mg/dLNormal7.0-18.0The [facility] HospitalComment on above:Performed By: #### LIPID, BMP, TSH, LIVER #### [facility] [address] [place] [address] Dr. Zi Pagan nitrogen/Creatinine [Mass ratio]16.3 mg/mgNoMarietta Memorial HospitalComment on above:Performed By: #### LIPID, BMP, TSH, LIVER #### [facility] [address] [place] [address] Dr. Zi Michelle 78-55-3964FHY3.816 uIU/mLNormal0.470-4.680The [facility] HospitalComment on above:Performed By: #### LIPID, BMP, TSH, LIVER #### [facility] [address] [place] [address] Dr. Zi BRASWELL BELOWCommunity Regional Medical CenterComment on above: Result Comment: <0.34 UIU/ml HYPERTHYROID 0.34-5.60 UIU/ml EUTHYROID >5.60 UIU/ml HYPOTHYROIDPerformed By: #### LIPID, BMP, TSH, LIVER #### [facility] [address] [place] [address] Dr. Zi LujanVITAMIN D 25 OHon 25-39-1482XDX D 25-OH14.6 ng/mLNormalThe [facility] HospitalComment on above:Performed By: #### VITAD #### [facility] [address] [place] [address] Dr. Zi BRODYRafa Lutheran HospitalComment on above: Result Comment: <20 ng/mL Vit D deficient 20 - <30 ng/mL Vit D insufficient 30 - 100 ng/mL Vit D sufficient >100 ng/mL Potential ToxicityPerformed By: #### VITAD #### [facility] [address] [address] [address] Zi Lujan Vital Signs Date TimeVital SignValuePerforming KzzwwzteaMtdewtun98-77-9422 09:11-0500Body dxlbadllati61.6 [degF]Aliciaclaudio Brown CODE CLERK Work Phone: [facility] HealthGjznmbxtea63-11-7859 09:11-0500Diastolic blood mm[Hg]Alicia Brown CODE CLERK Work Phone: [phone] [place], [place] [address]Uyrepzktfa68-92-9292 09:11-0500Heart rate97 /min Alicia Brown CODE CLERK Work Phone: [facility] HealthIokqixcplw00-31-1183 09:11-1450GcC9% (BldA) [Mass fraction]98 %Alicia Brown CODE CLERK Work Phone: [facility] HealthHpsqvcmewg37-60-5272 09:11-0500Systolic blood mylermns566 mm[Hg]Alicia Brown CODE CLERK Work Phone: [facility] HealthXubxdtoekz16-61-4112 10:39-0500Body .8 cmUsama Watts MD Work Phone: [facility] HealthOjdfreilsc12-89-9455 10:39-0500Body mass index (BMI) [Ratio]31.86 kg/m2Usama Watts MD Work Phone: [facility] HealthPciwtonwwk16-95-2693 10:39-0500Body temperature 96.6 [degF]Usama Watts MD Work Phone: [facility] HealthSzjmsckabm49-00-5098 10:39-0500Body fartwi07.29 kgUsama Watts MD Work Phone: [facility] HealthIjzmkyspit33-69-0980 10:39-0500Diastolic blood uajwmbbj58 mm[Hg]Usama Watts MD Work Phone: [facility] HealthKcgzaycxce87-11-1136 10:39-0500Heart rate58 /min Usama Watts MD Work Phone: [facility] HealthTvwefssctz15-63-5433 10:39-0500Respiratory rate20 /minUsama Watts MD Work Phone: [facility] Cvauumbtea33-44-3372 10:39-2080HiQ7% (BldA) [Mass fraction]96 %Usama Watts MD Work Phone: [facility] Qnavfkuvyd78-49-1028 10:39-0500Systolic blood kwbymgzq246 mm[Hg]Usama Watts MD Work Phone: [facility] Encounters Encounter DateEncounter TypeCare ProviderFacilityStart: 04-30-2024 End: 58-91-7448Ftprzk outpatient visit 25 minutesLindsmat Brown CODE CLERK Work Phone: [facility] SWS UCComment on above:Viral upper respiratory illness (Primary Dx); Cough, unspecified typeStart: 04-30-2024 End: 44-92-4379vaughqhzgxBQZOKTC N AUSTINNot AvailableStart: 04-20-2024 End: 95-11-0210Mnkooq flowsheetUsama Watts MD Work Phone: [facility] FMStart: 04-20-2024 End: 32-18-3102Woosex flowsheetUsama Watts MD Work Phone: [facility] CW FMStart: 04-20-2024 End: 66-90-5138Cyeswtpac Result EncounterUsama Watts MD Work Phone: [facility] External Department UnsolicitedStart: 04-20-2024 End: 91-16-0669Yyvzika encounter procedureUsama Watts MD Work Phone: [facility] Work Phone: Start: 04-20-2024 End: 49-44-2098Wknleocn preventive med est patient 40-64yrsManderson Watts MD Work Phone: [facility] FMComment on above:Annual physical exam (Primary Dx); Migraine without aura and without status migrainosus, not intractable (CMS/HCC); Dyshidrotic eczemaStart: 04-20-2024 End: 73-72-6298pansgykeyhWSPS NADERERNot AvailableStart: 10-12-2023 End: 97-29-0363uenrgpoipaHJFF NADERERNot AvailableStart: 36-38-8767Spfwrqk encounter procedureUsama Watts MD Work Phone: [facility] HealthcareStart: 05-25-2023 End: 12-64-7368ejzazhcvkgJAYG NADERERNot AvailableStart: 05-07-2023 End: 22-16-0056mfkehyfvkkVMGIIJ Emani WORKMANNot AvailableStart: 88-11-2549Hpqwifbnc for general adult medical examination without abnormal findingsDR USAMA COLBYRTjakob [facility] HospitalStart: 07-17-2021 End: 77-09-0907bthwpwhebzTZ USAMA Aranda NADERERFacility:U8Clgja: 07-17-2021 End: 84-81-2046Fvxlpexrq for general adult medical examination without abnormal findingsDR USAMA Aranda NADERERFacility:H1 Procedures DateProcedureProcedure DetailPerforming ClinicianStart: 27-98-3466TPOEYK COVID-19/FLUAlireza Garcia DO Work Phone: Start: 59-77-6700DTM CBC WITH AUTO DIFFUsama Watts MD Work Phone: Start: 91-35-1725ZtpychnmfhaChfu Naderer MD Work Phone: Plan of Treatment DateCare ActivityDetailAuthorStart: 10-19-2024 End: 98-75-4530Denwyfi encounter mfqiqcrec54/17/2025 9:00 AM EDT Office Visit [facility] [address] [place] [address] Usama Watts MD [address] [place] [address] [facility] FMStart: 14-56-9082Otwozoapf for malignant neoplasm of colonNOMS HealthcareStart: 04-37-8199Eosqogpsp for malignant neoplasm of colonNOMS HealthcareStart: 07-66-1152Vyupbocwv for malignant neoplasm of breastMammogram [facility] HealthcareComment on above:Postponed from 07/17/2022 (Patient Refused) Start: 04-20-2024 End: 48-33-3760Toraf metabolic 1998 panel - Serum or PlasmaBasic metabolic panel Lab Routine Annual physical exam Expected: 04/20/2024 (Approximate), Expires: 04/20/2025[facility] HealthcareComment on above:Expected: 04/20/2024 (Approximate), Expires: 04/20/2025Start: 04-20-2024 End: 15-54-4541FUU W Auto Differential panel - BloodCBC and differential Lab Routine Annual physical exam Expected: 04/20/2024 (Approximate), Expires: 0 04/20/2025[facility] HealthcareComment on above:Expected: 04/20/2024 (Approximate), Expires: 04/20/2025Start: 04-20-2024 End: 48-31-1969Yjfeclfnwr A1c/Hemoglobin.total in BloodHemoglobin A1c Lab Routine Annual physical exam Expected: 04/20/2024 (Approximate), Expires: 04/20/2025[facility] Healthcare Work Phone: Comment on above:Expected: 04/20/2024 (Approximate), Expires: 04/20/2025Start: 04-20-2024 End: 77-81-1288Ujnjgxa function 2000 panel - Serum or PlasmaHepatic function panel Lab Routine Annual physical exam Expected: 04/20/2024 (Approximate), Expires: 04/20/2025[facility] HealthcareComment on above:Expected: 04/20/2024 (Approximate), Expires: 04/20/2025Start: 04-20-2024 End: 31-79-6229Jagkv 1996 panel - Serum or PlasmaLipid panel Lab Routine Annual physical exam Expected: 04/20/2024 (Approximate), Expires: 04/20/2025[facility] HealthcareComment on above:Expected: 04/20/2024 (Approximate), Expires: 04/20/2025Start: 04-20-2024 End: 59-35-0485Ashdkdgfukz [Units/volume] in Serum or PlasmaTSH Lab Routine Annual physical exam Expected: 04/20/2024 (Approximate), Expires: 04/20/2025[facility] HealthcareComment on above:Expected: 04/20/2024 (Approximate), Expires: 04/20/2025Start: 04-20-2024 End: 80-70-8813Jukmbwz encounter jgqecmdyc56/16/2025 10:15 AM EST Office Visit [facility] [address] [place] [address] Usama Watts MD [address] [place] [address] [facility]rivedAUR[facility] FMComment on above:ArrivedStart: 10-41-3152Lqvroalkw vaccinationInfluenza Vaccine (#1)[facility] HealthcareStart: 10-37-8535Omyzrgbwl for malignant neoplasm of cervixNOMS HealthcareStart: 70-92-4615Pwtnlyacy for malignant neoplasm of cervixPap SmearNOMS HealthcareStart: 89-18-3567Hvzgtjtqd for malignant neoplasm of colonNOWA Healthcare Immunizations Immunization DateImmunizationNotesCare RwptztmhKxkawkfn33-58-1861vqktvlu, mumps and rubella virus vaccineUsama Watts MD Work Phone: [facility] HealthTqbjabtgif31-80-8869idulynz toxoid, reduced diphtheria toxoid, and acellular pertussis vaccine, adsorbedUsama Watts MD Work Phone: [facility] Payers DatePayer CategoryPayerPolicy [id number] OTHER Member Subscriber Plan / Payer (Effective 2022-Present) Name: Irene Bakerember ID: [id number] Relation to Subscriber: Self Name: Irene Baker Payer ID: Not on file Type: Not on file Address: [address] [id number] [id number] 2..[id number] [id number] [id number] 2..0.1.610141.3.57[id number] 2..0.1.6[id number] 2..0.1.745058.3.57[id number] 2..0.1.63209[id number] Social History DateTypeDetailFacilityStart: 56-29-1141Pbhsnrd smoking status NHISSmokes tobacco dailyNOWA HealthcareHistory of tobacco useCigarette SmokerNOWA HealthcareStart: 05-18-2023 End: 55-36-9534Heekjlexio smoked current (pack per day) - Gxmuhiha1LOVJ HealthcareStart: 39-59-7311Nqbruap use and exposureSmokeless tobacco non-user [facility] HealthcareStart: 10-12-2023 End: 42-91-3830Qyoqsmbig beverage intakeEx-drinker (finding)[facility] Start: 05-18-2023 End: 09-49-3308Qmaqjvtclmj, Afraid, Rape, and Kick questionnaire [HARK][facility] HealthcareWithin the last year, have you been afraid of your partner or ex-partner?NoNOMS HealthcareAre you now , , , , never or living with a partner?MarriedNOMS HealthcareHow often to you have a drink containing alcohol?NeverNOMS HealthcareHow many standard drinks containing alcohol do you have on a typical day?Patient does not drinkNOMS HealthcareDo you feel stress - tense, restless, nervous, or anxious, or unable to sleep at night because yourmind is troubled all the time - these days [OSQ] Only a littleNOMS Healthcare(I/We) worried whether (my/our) food would run out before (I/we) got money to buy more.Never trueNOMS HealthcareStart: 04-26-2023 Tobacco Mjydlpm36-37 cigs/dayNOMS HealthcareStart: 21-36-7105Sjb assigned at birthNot on [facility] History of Present illness Narrative 04-30-2024 Note Date & HdelNqaeEusglfzl84-32-6309 History of Present illness Narrative* Alicia Brown, CODE CLERK - 04/30/2024 9:15 AM EST Images from the original note were not included. [address] , [address] [facility], [address] P: [phone] F: [phone] HPI Historian of HPI: patient Irene Baker is a 53 y.o. female who presents today to the Urgent Care with the following complaints and denials which have been present for 2 day(s). C/O Denies Symptom Comments [x] [] Runny Nose [] [x] Difficulty Swallowing [] [x] Sore Throat [x] [] Cough [] [x] Ear Pain [x] [] Fever [x] [] Chills [x] [] Nasal Congestion [x] [] Myalgia [x] [] Sinus Pain [x] [] Sinus Pressure Additional Comments: pt has taken mucinex OTC medication without relief Pt is agreeable to covid and flu testing. ROS A complete system ROS was performed and negative aside from the pertinent positives noted in the HPI and PE. Visit Vitals BP 128/76 Pulse 97 Temp 96.6 F SpO2 98% Smoking Status Every Day PHYSICAL EXAM Physical Exam Vitals reviewed. Constitutional: General: She is not in acute distress. Appearance: Normal appearance. HENT: Head: Normocephalic and atraumatic. Right Ear: Hearing, tympanic membrane, ear canal and external ear normal. Left Ear: Hearing, tympanic membrane, ear canal and external ear normal. Nose: Congestion present. Right Turbinates: Enlarged and swollen. Left Turbinates: Enlarged and swollen. Mouth/Throat: Lips: [place]. Mouth: Mucous membranes are moist. Pharynx: Oropharynx is clear. Uvula midline. Posterior oropharyngeal erythema and postnasal drip present. Eyes: Extraocular Movements: Extraocular movements intact. Conjunctiva/sclera: Conjunctivae normal. Pupils: Pupils are equal, round, and reactive to light. Cardiovascular: Rate and Rhythm: Normal rate and regular rhythm. Pulses: Normal pulses. Heart sounds: Normal heart sounds. Pulmonary: Effort: Pulmonary effort is normal. No respiratory distress. Breath sounds: No wheezing, rhonchi or rales. Musculoskeletal: General: Normal range of motion. Cervical back: Normal range of motion and neck supple. Skin: General: Skin is warm and dry. Findings: No rash. Neurological: General: No focal deficit present. Mental Status: She is alert and oriented to person, place, and time. Psychiatric: Mood and Affect: Mood normal. Behavior: Behavior normal. Thought Content: Thought content normal. Judgment: Judgment normal. TREATMENT PLAN 1. Cough, unspecified type COVID and Influenza A/B testing is negative. -Take medication as prescribed below to completion -cough and deep breathe -May use Tylenol/Ibuprofen for pain/fever -May use OTC medication such as coughsyrups especially at night time for relief, pseudoephedrine for nasal congestion, and/or Rizwana Pot or saline rinses. -Follow up with in 1 week if no improvement or go to the ED for worsening of symptoms such as SOB or CP. Declines work note today. - STATUS COVID-19/FLU - methylPREDNISolone (Medrol Dospak) 4 MG tablets; Follow schedule on package instructions Dispense: 21 tablet; Refill: 0 2. Viral upper respiratory illness (Primary) Pt advised they likely have a viral illness. Advised on what OTC medications to take to treat fever, sore throat, body aches, sinus pain, cough, chest congestion, nose and sinus congestion, sneezing,runny nose, watery, itchy eyes, overall congestion relief, faster recovery and how to avoid spreading your illness. Call or RTO if worsening or not improving as expected. - methylPREDNISolone (Medrol Dospak) 4 MG tablets; Follow schedule on package instructions Dispense: 21 tablet; Refill: 0 documented in this encounterNOMS Healthcare History of Present illness Narrative 04-20-2024 Note Date & NtssBjkrCeizrkhl02-46-4633 History of Present illness Narrative* Usama Watts MD - 04/20/2024 12:11 PM ESTAssociated Problem(s): Dyshidrotic eczema Worsening rash and treat with prednisone. Use cream PRN. * Usama Watts MD - 04/20/2024 12:11 PM ESTAssociated Problem(s): Migraine without aura and without status migrainosus, not intractable (CMS/HCC) MADRID unchanged and continue periactin and topamax. Use fioricet PRN. * Usama Watts MD - 04/20/2024 12:11 PM ESTAssociated Problem(s): Annual physical exam Due for labs. Discussed proper diet and regular aerobic exercise. Need aerobic exercise 5-6 days a week for 30 minutes at a time. Smaller portions and limit total calories. Cologuard normal July 2021. Tetanus every 10 years. Advised not to smoke. * Usama Watts MD - 04/20/2024 10:15 AM EST Images from the original note were not included. Subjective Patient ID: Irene Baker is a 53 y.o. female who presents for Follow-up (6m). Presents for annual PE. Weight down 3 pounds. Active at work but no regular exercise or activity. Tries to watch diet and eat healthy. Increased fruits and vegetables. Smaller portions and limits snacking. Tries to limit total daily calories. Due for labs. MADRID worse since off qulipta and insurance not cover. Attempted patient assistance but felt like too much of a hassle and just dealing with MADRID. Daily MADRID and severe MADRID 2-3 times a month. Throbbing pain in entire head associated with photophobia,phonophobia and nausea. Using OTC PRN and fioricet when severe and helps when needed. Eczema recentworse. Increased rash on hands and fingers. Using desonide cream and helps. Review of Systems Respiratory: Negative for cough, shortness of breath and wheezing. Cardiovascular: Negative for chest pain and palpitations. Gastrointestinal: Negative for abdominal pain, diarrhea, nausea and vomiting. Genitourinary: Negative for dysuria. Objective Physical Exam Constitutional: General: She is not in acute distress. Appearance: Normal appearance. HENT: Head: Normocephalic. Right Ear: Tympanic membrane normal. Left Ear: Tympanic membrane normal. Eyes: Extraocular Movements: Extraocular movements intact. Pupils: Pupils are equal, round, and reactive to light. Cardiovascular: Rate and Rhythm: Normal rate and regular rhythm. Heart sounds: No murmur heard. No friction rub. No gallop. Pulmonary: Effort: Pulmonary effort is normal. Breath sounds: Normal breath sounds. No wheezing, rhonchi or rales. Abdominal: General: Bowel sounds are normal. There is no distension. Palpations: Abdomen is soft. Tenderness: There is no abdominal tenderness. There is no guarding or rebound. Musculoskeletal: General: No swelling or tenderness. Cervical back: Neck supple. Right lower leg: No edema. Left lower leg: No edema. Skin: Findings: No erythema or rash. Neurological: General: No focal deficit present. Mental Status: She is alert and oriented to person, place, and time. Cranial Nerves: No cranial nerve deficit. Motor: No weakness. Gait: Gait normal. Assessment/Plan Problem List Items Addressed This Visit Dyshidrotic eczema Worsening rash and treat with prednisone. Use cream PRN. Relevant Medications predniSONE (Deltasone) 50 MG tablet Migraine without aura and without status migrainosus, not intractable (CMS/HCC) MADRID unchanged and continue periactin and topamax. Use fioricet PRN. Relevant Medications ibuprofen 800 MG tablet zegnnfkpqy-tyecmcrgwllkp-xvwbqjcy 50-325-40 MG tablet Annual physical exam - Primary Due for labs. Discussed proper diet and regular aerobic exercise. Need aerobic exercise 5-6 days a week for 30 minutes at a time. Smaller portions and limit total calories. Never had colon cancer screening and refused. Tetanus every 10 years. Advised not to smoke. Relevant Orders Hemoglobin A1c Basic metabolic panel CBC and differential Hepatic function panel Lipid panel TSH documented in this encounterNOWA Healthcare Evaluation note Note Date & TypeNoteFacilityEvaluation note* Diagnosis Migraine without aura and without status migrainosus, not intractable (CMS/HCC)- Primary SOB (shortness of breath) on exertion Shortness of breath Tobacco user Tobacco use disorder Seasonal allergic rhinitis due to pollen Annual physical exam Routine general medical examination at a health care facility Migraine without aura and without status migrainosus, not intractable (CMS/HCC)- Primary Dyshidrotic eczema Seasonal allergic rhinitis due to pollen Annual physical exam- Primary Routine general medical examination at a health care facility Migraine without aura and without status migrainosus, not intractable (CMS/HCC) Dyshidrotic eczema documented in this encounter [facility] Evaluation note Note Date & TypeNoteFacilityEvaluation note* Diagnosis Migraine without aura and without status migrainosus, not intractable (CMS/HCC)- Primary SOB (shortness of breath) on exertion Shortness of breath Tobacco user Tobacco use disorder Seasonal allergic rhinitis due to pollen Annual physical exam Routine general medical examination at a health care facility Migraine without aura and without status migrainosus, not intractable (CMS/HCC)- Primary Dyshidrotic eczema Seasonal allergic rhinitis due to pollen Annual physical exam- Primary Routine general medical examination at a health care facility Migraine without aura and without status migrainosus, not intractable (CMS/HCC) Dyshidrotic eczema Viral upper respiratory illness- Primary Cough, unspecified type documented in this encounter [facility] Healthcare Summary Purpose Family History No Family History Records FoundNo Family History Records Found Advance Directives No Advanced Directives Records FoundNo Advanced Directives Records Found Additional Source Comments INFORMATION SOURCE (unrecogn ized section and content) DATE CREATED AUTHOR 07/24/2021 [facility] DATE CREATED AUTHOR AUTHOR'S ORGANIZ ATION 04/30/2024 [facility] EPIC Care Teams (unrecognized sec tion and content) Team MemberRelationshipSpecialtyStart DateEnd Date Usama Watts MD [address] [place] [address] PCP - GeneralFami Medicine05/05/23Te MemberRelationshipSpecialtyStkuttawa DateEnd Date Usama Watts MD [address] [place] [address] [facility]05/05/23Te MemberRelationsTwo [facility] Psychiatric HospitalialtyT[place] DateEnd Date Usama Watts MD [address] [place] [address] [facility] - [facility]05/05/23Te MemberRelationsTwo Rivers Psychiatric HospitalialtyTol[place] DateEnd Date Usama Watts MD [address] [place] [address] PCP - [facility]05/05/23 Reason for Visit (unrecogniz ed section and content) ReasonCommentsFollow-up6m FOR RECORDS PERTAINING TO PATIENTS WHO ARE OR HAVE BEEN ENROLLED IN A CHEMICAL DEPENDENCY/SUBSTANCEABUSE PROGRAM, SOME INFORMATION MAY BE OMITTED. This clinical summary was aggregated from multiple sources. Caution should be exercised in using it in the provision of clinical care. This summary normalizes information from multiple sources, and as a consequence, information in this document may materially change the coding, format and clinical context of patient data. In addition, data may be omitted in some cases. CLINICAL DECISIONS SHOULD BE BASED ON THE PRIMARY CLINICAL RECORDS. REVENTIVE [facility]. provides no warranty or guarantee of the accuracy or completeness of information in this document.
[2025-02-12 20:54] LABS: Cast Seen? SEEN #/LPF (NONE SEEN); Crystals Seen? None Seen #/HPF (None Seen); Urine Culture Indicated YES-FRMC
[2025-02-12 20:55] LABS: Alanine Aminotransferase 41 U/L (14-59); Albumin Globulin Ratio 1.0; Albumin Level 3.7 g/dL (3.4-5.0); Alkaline Phosphatase 155 U/L (46-116); Anion Gap 13.1; Aspartate Amino Transferase 23 U/L (15-37); Blood Urea Nitrogen 13.0 mg/dL (7.0-18.0); Calcium 9.3 mg/dL (8.5-10.1); Carbon Dioxide 23.3 mmol/L (21.0-32.0); Chloride 106 mmol/L (98-107); Estimated GFR (African America >60 (>=60 mL/min/1.73m^2); Estimated GFR (Non-African Ame >60 (>=60 mL/min/1.73m^2); Globulin 3.7 g/dL; Glucose 101 mg/dL (74-106); Lipase 24.0 U/L (16.0-77.0); Potassium 3.4 mmol/L (3.5-5.1); Sodium 139 mmol/L (136-145); Total Protein 7.4 g/dL (6.4-8.2)
[2025-02-12 20:58] LABS: Lactate/Lactic Acid 1.7 mmol/L (0.4-2.0)
[2025-02-12] MEDS: FENTANYL CITRATE/PF 100 MCG/2 ML VIAL 50 MCG IV (22:45)
[2025-02-12 23:40] VITALS: BP 133/80; PULSE 92; O2SAT 97
== END 2025-02-12 23:43 | disposition home or self-care (01) ==
PROVIDERS: Emergency Provider Internal Medicine; PCP Family Medicine
DX: N39.0 Urinary tract infection, site not specified (principal); R10.32 Left lower quadrant pain
CPT/HCPCS: 36415; 74177; 80053; 81001; 83605; 83690; 85025; 87086; 96365; 96375; 99285; J0696; J1885; J3010; Q9967

== ENCOUNTER 2025-02-13 01:59 | Inpatient (IN) | payer OTHER, SELFPAY ==
--- OUTSIDE RECORDS SUMMARY | 2017-03-31 06:55 | XMS_ITS | Continuity of Care Document ---
Author Organization [facility] Address [address] [place] [address] Phone Care Team Providers Care Record Systems Analyst Name Role Phone Rajendra Tian MD Unavailable Unavailable Allergies, Adverse Reactions, Alerts Substance Reaction Status Criticality No Known allergies Medications Medication Instructions Dosage Effective Dates (start - stop) Status Comments desoximetasone 0.25 % Topical Cream apply by TOPICAL route 2 times every day to the affected area(s) - Active ibuprofen 200 mg Cap take 1 capsule (200MG) by ORAL route every 6 hours as needed 200 MG - Active Procedures Procedure Date MMR VACCINE, SC OFFICE/OUTPATIENT VISIT, EST EST OFFICE VISIT LEVEL 3 OFFICE/OUTPATIENT VISIT, EST TDAP VACCINE >7 IM TB INTRADERMAL TEST MEASURE BLOOD OXYGEN LEVEL PREV VISIT, NEW, AGE 18-39 TB INTRADERMAL TEST Advance Directives Directive Yes / No Effective Date File Name No Information Encounters Encounter Description Practice Location Reason(s) For Visit Diagnoses Date Provider Providers Copied on Encounter [facility], [address] [place] [address], [id number], [place] tel:[phone] [facility] No Information Jaylan Drew. [address] [place] [address], [id number] , [place]. tel:[phone] OFFICE/OUTPAT IENT VISIT, EST [facility], [address] [place] [address], [id number], tel:[phone] [facility] No Information 0 Jacey Hay. [address], [place], [id number] , [place]. tel: [phone] EST OFFICE VISIT LEVEL 3 [facility], [address] [place] [address], [id number], [place] tel:[phone] [facility] rash (chief complaint)N EEDS ORDER FOR TITERS (chief complaint) HeadacheContact dermatitis and other eczema, unspecified causeContact dermatitis and other eczema, unspecified causeRoutine general medical examination at a health care facility 0 Gallo Lopez. [address] [place] [address], [id number]. tel: [phone] OFFICE/OUTPAT IENT VISIT, [facility], [address] [place] [address], [id number], [place] tel:[phone] [facility] No Information 0 Jacey Hay. [address], [place], [id number] , [place]. tel: [phone] [facility], [address] [place] [address], [id number], [place] tel:[phone] [facility] No Information 0 Jacey Hay. [address] [place] [address], [id number] , [place]. tel: [phone] PREV VISIT, NEW, AGE 18-39 [facility], [address] [place] [address], [id number], [place] tel:[phone] [facility] physical (school) (chief complaint) Routine general medical examination at a health care facilityRoutine general medical examination at a health care facility 0 Gallo Lopez. [address] [place] [address], [id number]. tel:[phone] Family History Family Member Type Diagnosis Age At Onset Father Problem (finding) alcoholism Paternal grandmother Problem (finding) alcoholism Mother Problem (finding) Alive and well Maternal grandmother Problem (finding) Hearing impairm ent Mother Problem (finding) alcoholism Maternal grandmother Problem (finding) Diabetes mellit us Father Problem (finding) hypertension Mother Problem (finding) Hearing impairment Paternal grandfather Problem (finding) coronary arteri osclerosis Immunizations Vaccine Date Status Comments MMR administered Source: New Imm unization Record Tdap administered Source: New Imm unization Record Payers Payer name Insurance type Covered constitution party ID Authoriza tion(s) No Information Social History Type Description Quantity Date Captured Comments Sex Female Smoking Status No Information Chief Complaint And Reason For Visit No Information Reason For Referral Reason For Referral No Information Plan Of Treatment Date Type Action Status Goal TD Vaccine. Due on 10 due Goal H&P. Due on due History Of Present Illness Encounter Date Complaint History Of Prese nt Illness No Information Functional Status Date Functional Assessmen t No Information Instructions Date Instruction Additional Infor mation Walking program recommended Call if symptoms persist Go to ER if symptoms persist or worsen Order labs/studies Review medication side effects Review medications Prescribe medications Assessments Type Assessment Date No Information Patient Care Teams Name Effective Dates (start - stop) Status Members No Information
[2025-02-13] VITALS (11 sets, daily range): BP systolic 133–189; BP diastolic 75–117; PULSE 84–105; TEMP 36.4–36.8; O2SAT 91–98; BMI 32.2; BMI 31.7
--- NOTE | 2025-02-13 02:22 | ED.ABDPAIN1 ---
HPI - Abdominal Pain General Chief Complaint: Abdominal Pain Stated Complaint: ABDOMINAL PAIN Time Seen by Provider: 02/13/25 02:05 Source: patient Mode of arrival: walk-in Limitations: no limitations History of Present Illness HPI narrative: patient was seen last PM for LLQ and left flank pain. CT neg. Found to have UTI. pain treated with fentanyl and Toradol and she felt better. Given dose of Rocephin and discharged home. Now returns . States pain returned and she became nauseated and vomited . Now that she is here pain is decreasing again Related Data Allergies Allergy/AdvReac Type Severity Reaction Status Date / Time sumatriptan (From Imitrex) AdvReac Mild Migraine Verified 02/13/25 02:13 Review of Systems ROS Status of ROS 10 or more systems reviewed and unremarkable except as noted in history and below PFSH PFSH Social History Little interest or pleasure in doing things: not at all Feeling down, depressed, or hopeless: not at all Exam Constitutional Vital Signs, click to edit/add: Last Vital Signs Temp 97.5 F L 02/13/25 02:03 Pulse 91 H 02/13/25 05:40 Resp 26 H 02/13/25 05:40 BP 136/75 02/13/25 05:27 Pulse Ox 94 L 02/13/25 05:40 O2 Del Method Room Air 02/13/25 02:03 Common normals: no apparent distress, average body habitus, oriented x3, no limitations, healthy appearing, alert and well nourished [facility] Common normals: normocephalic and head/scalp atraumatic Eye Common normals: EOMs intact bilaterally and conjunctivae normal Respiratory Common normals: normal respiratory effort, no retractions, no use of accessory muscles and clear to auscultation bilaterally Cardio Common normals: regular rate, regular rhythm, S1 normal heart sound and S2 normal heart sound GI Common normals: Normal to inspection, nondistended, normoactive bowel sounds present and soft to palpation Other: mild LLQ tenderness Extremity Common normals: normal to inspection and full ROM Neuro Common normals: oriented x3, CN's II-XII intact bilaterally and moves all extremities Psych Appearance: grossly normal Course Vital Signs Vital signs: Vital Signs Temperature 97.5 F L 02/13/25 02:03 Pulse Rate 98 H 02/13/25 02:03 Respiratory Rate 17 02/13/25 02:03 Blood Pressure 189/117 H 02/13/25 02:03 Pulse Oximetry 98 02/13/25 02:03 Oxygen Delivery Method Room Air 02/13/25 02:03 Temperature 97.5 F L 02/13/25 02:03 Pulse Rate 91 H 02/13/25 05:40 Respiratory Rate 26 H 02/13/25 05:40 Blood Pressure 136/75 02/13/25 05:27 Pulse Oximetry 94 L 02/13/25 05:40 Oxygen Delivery Method Room Air 02/13/25 02:03 MDM - Abdominal Pain MDM Narrative Medical decision making narrative: patient returns with LLQ and left flank pain. Repeat workup unchanged from her first visit. Unclear as to the cause of her pain. She has been medicated with fentanyl, and Dilaudid for recurrence of pain during her time in the department. Her CT abd/pelvis with contrast yesterday was without acute findings. Unclear as to the cause of her pain but possibly may have missed ureteral stone as she received contrast. Discussed with the hospitalist and will plan an obs admission. Nursing noted irregularly of her pulse when they rechecked her vitals. EKG demonstrates NSR with PVCs. Troponin neg. Discussed with the hospitalist and patient accepted for obs admission Lab Data Labs: Lab Results 02/13/25 02/13/25 Range/Units 02:10 05:30 WBC 11.1 H (4.0-11.0) 10^3/uL RBC 5.20 (4.20-5.40) 10^6/uL Hgb 15.2 (12.0-16.0) g/dL Hct 45.2 (36.0-48.0) % MCV 86.9 (81.0-99.0) fL MCH 29.2 (26.7-34.0) pg MCHC 33.6 (29.9-35.2) g/dL RDW 13.0 (11.0-15.0) % Plt Count 256 (150-450) 10^3/uL MPV 10.9 (9.5-13.5) fL Neut % (Auto) 75.0 (43.0-75.0) % Lymph % (Auto) 16.9 L (20.5-60.0) % [place] % (Auto) 6.3 (1.7-12.0) % Eos % (Auto) 1.3 (0.9-7.0) % Baso % (Auto) 0.3 (0.2-2.0) % Neut # (Auto) 8.3 H (1.4-6.5) 10^3/uL Lymph # (Auto) 1.9 (1.2-3.8) 10^3/uL [place] # (Auto) 0.7 (0.3-0.8) 10^3/uL Eos # (Auto) 0.1 (0.0-0.7) 10^3/uL Baso # (Auto) 0.0 (0.0-0.1) 10^3/uL Abs Immat Gran (auto) 0.02 (0.00-0.03) 10^3/uL Imm/Tot Granulo (auto) 0.2 (0.0-0.5) % Sodium 140 (136-145) mmol/L Potassium 3.7 (3.5-5.1) mmol/L Chloride 108 H (98-107) mmol/L Carbon Dioxide 22.9 (21.0-32.0) mmol/L Anion Gap 12.8 BUN 11.0 (7.0-18.0) mg/dL Creatinine 0.64 (0.55-1.02) mg/dL Est GFR ( Amer) >60 (>=60 mL/min/1.73m^2) Est GFR (Non-Af Amer) >60 (>=60 mL/min/1.73m^2) BUN/Creatinine Ratio 17.2 Glucose 129 H (74-106) mg/dL Lactate 1.0 (0.4-2.0) mmol/L Calcium 9.1 (8.5-10.1) mg/dL Total Bilirubin 0.5 (0.2-1.0) mg/dL AST 23 (15-37) U/L ALT 41 (14-59) U/L Alkaline Phosphatase 151 H (46-116) U/L Troponin I High Sens <4.0 L (4.0-51.3) pg/mL Total Protein 7.1 (6.4-8.2) g/dL Albumin 3.5 (3.4-5.0) g/dL Globulin 3.6 g/dL Albumin/Globulin Ratio 1.0 Lipase 19.0 (16.0-77.0) U/L Urine Color Yellow (YELLOW) Urine Clarity Clear (CLEAR) Urine pH 7.5 (5.0-9.0) Ur Specific [place] 1.010 (1.005-1.025) Urine Protein Trace (NEG/TRACE) mg/dL Urine Glucose (UA) Negative (NEGATIVE) mg/dL Urine Ketones Negative (NEGATIVE) mg/dL Urine Occult Blood Small A (NEGATIVE) Urine Nitrite Negative (NEGATIVE) Urine Bilirubin Negative (NEGATIVE) Urine Urobilinogen 0.2 (0.2-1.0) EU/dL Ur Leukocyte Esterase Negative (NEGATIVE) Urine RBC 2-5 A (0-2) #/HPF Urine WBC 5-10 A (NONE SEEN) #/HPF Ur Squamous Epith Cells Few A (NONE/RARE) #/LPF Urine Crystals Seen A (None Seen) #/HPF Amorphous Sediment Moderate Urine Bacteria Moderate A (NONE SEEN) #/HPF Urine Casts None seen (NONE SEEN) #/LPF Urine Mucus None seen (NONE SEEN) Ur Culture Indicated? Already ordered Discharge Plan Discharge Chief Complaint: Abdominal Pain Clinical Impression: Intractable abdominal pain Patient Disposition: Admitted as Observation
[2025-02-13 02:32] LABS: Hematocrit 45.2 % (36.0-48.0); Hemoglobin 15.2 g/dL (12.0-16.0); Immature Granulocytes Abs Auto 0.02 10^3/uL (0.00-0.03); Immature Granulocytes Pct Auto 0.2 % (0.0-0.5); Lymphocytes Absolute Auto 1.9 10^3/uL (1.2-3.8); Mean Corpuscular HGB Conc 33.6 g/dL (29.9-35.2); Mean Corpuscular Hemoglobin 29.2 pg (26.7-34.0); Mean Corpuscular Volume 86.9 fL (81.0-99.0); Platelet Count 256 10^3/uL (150-450); Red Blood Count 5.20 10^6/uL (4.20-5.40); White Blood Count 11.1 10^3/uL (4.0-11.0)
[2025-02-13] MEDS: 0.9 % SODIUM CHLORIDE 1,000 ML 999 ML IV (02:39)
[2025-02-13] MEDS: FENTANYL CITRATE/PF 100 MCG/2 ML VIAL 50 MCG IV (02:39)
[2025-02-13] MEDS: ORPHENADRINE 60 MG/2 ML VIAL IV (02:39)
[2025-02-13 02:48] LABS: Alanine Aminotransferase 41 U/L (14-59); Albumin Globulin Ratio 1.0; Albumin Level 3.5 g/dL (3.4-5.0); Alkaline Phosphatase 151 U/L (46-116); Anion Gap 12.8; Aspartate Amino Transferase 23 U/L (15-37); Blood Urea Nitrogen 11.0 mg/dL (7.0-18.0); Calcium 9.1 mg/dL (8.5-10.1); Carbon Dioxide 22.9 mmol/L (21.0-32.0); Chloride 108 mmol/L (98-107); Estimated GFR (African America >60 (>=60 mL/min/1.73m^2); Estimated GFR (Non-African Ame >60 (>=60 mL/min/1.73m^2); Globulin 3.6 g/dL; Glucose 129 mg/dL (74-106); Potassium 3.7 mmol/L (3.5-5.1); Sodium 140 mmol/L (136-145); Total Protein 7.1 g/dL (6.4-8.2)
[2025-02-13 02:50] LABS: Lactate/Lactic Acid 1.0 mmol/L (0.4-2.0)
[2025-02-13 02:51] LABS: Lipase 19.0 U/L (16.0-77.0)
[2025-02-13] MEDS: HYDROMORPHONE HCL 0.5 MG/0.5 ML SYRINGE IV ×2 (03:45→05:25)
[2025-02-13 05:54] LABS: Glucose Urine UA NEGATIVE (NEGATIVE)
--- NOTE | 2025-02-13 05:57 | ECG_ITS ---
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 Measurements Intervals [place] Rate: 90 P: 65 CT: 144 QRS: 96 QRSD: 78 T: 43 QT: 352 QTc: 400 Interpretive Statements 1100 Sinus rhythm 1574 with frequent ventricular premature complexes 7102 Moderate right axis deviation 9140 abnormal rhythm ECG No previous ECG available for comparison Electronically Signed On 02-13-2025 7:01:32 EST by SAMUEL BOLDEN M.D.
[2025-02-13 06:02] LABS: Cast Seen? NONE SEEN #/LPF (NONE SEEN); Crystals Seen? Seen #/HPF (None Seen)
[2025-02-13 06:03] LABS: Urine Culture Indicated ALREADY ORDERED
--- OUTSIDE RECORDS SUMMARY | 2025-02-13 06:20 | XMS_ITS | Clinical Summary ---
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 Name Role Phone Usama Billy MD Primary Care Provider [phone] Allergies Active AllergyReactionsCriticalityNoted UdtmXlvmcaswEzqqbtruslwIoedOcr23/17/2023 Medications MedicationSigDispense QuantityRefillsLast FilledStart DateEnd DateStatus KETOROLAC TROMETHAMINE PO Ketorolac TromethamineActive albuterol HFA 90 mcg/act inhaler Indications:SOB (shortness of breath) on exertionInhale 2 puffs every 4 (four) hours if needed for wheezing or shortness of breath 18 g ctive desonide (DesOwen) 0.05 % cream Indications:Chronic eczemaAPPLY TO AFFECTED AREA 3 TIMES A DAY 15 g 4Active saeunhbdyh-odzmvxayfsnnp-tlczodfc 50-325-40 MG tablet Indications:Migraine without aura and [...] tablet 5Active Active Problems ProblemNoted DateDiagnosed DateSubclinical pjfxenizqhutxx89/16/2025Dyshidrotic movbfp5905/25/2023 Assessment & Plan (04/20/2024 12:11 PM EST): Worsening rash and treat with prednisone. Use cream PRN. Assessment & Plan (10/12/2023 3:33 PM EDT): Occasional rash and use cream PRN. Migraine without aura and without status migrainosus, not ovyiyfhresd36/20/2024 Assessment & Plan (04/20/2024 12:11 PM EST): [...] and topamax. Use fioricet PRN. Vitamin D bmpkzabxde32/20/2024ilateral carpal tunnel /20/2024lass 1 obesity due to excess calories without serious comorbidity with body mass index (BMI) of 31.0 to 31.9 in adult05/25/2023Seasonal allergic rhinitis due to pollen 05/25/2023 Assessment & Plan (10/12/2023 3:33 PM EDT): Symptoms tolerable without medication and monitor. Assessment & Plan (05/25/2023 1:42 PM EST): Symptoms controlled with medication and continue. SOB (shortness of breath) on hpifbpqk26/20/2024 Assessment & Plan (05/25/2023 1:42 PM EST): [...] Advised not to smoke. Immunizations ImmunizationAdministration DatesNext [id number]/27/2010 Family History Medical HistoryRelationNameCommentsRheum arthritisBrotherCirrhosisFather HepatitisFatherHepatitis CHypertensionFatherNo Known ProblemsSonRelationName StatusCommentsBrother1 brotherFatherAliveMotherAliveSon2 sons Social History Tobacco UseTypesPacks/DayYears UsedDateSmoking Tobacco: Every LxsPidujomfnv755 Smokeless Tobacco: Never Comments:11-20 cigs/day Alcohol UseStandard [...] friends or relatives?Never05/18/2023How often do you attend buddhist or uatsdin services?Never05/18/2023o you belong to any clubs or organizations such as buddhist groups, unions, fraternal or athletic groups, or school groups?No 05/18/2023How often do you attend meetings of the clubs or organizations you belong to?Never05/18/2023re you , , , , never , or living with a partner?Fkmbhqc7705/18/2023UDIT-CAnswerDate RecordedQ1: How often do you have a [...] hard at all05/18/2023HQ-2AnswerDate Recorded Patient Health Questionnaire-2 Ddbsy390[facility] [place] [facility] Occupational Health - Occupational Stress QuestionnaireAnswerDate RecordedDo you feel stress - tense, restless, nervous, or anxious, or unable to sleep at night because your mind is troubled all the time - these days?Only a rcgttq1705/18/2023Exercise Vital SignAnswerDate RecordedOn average, how many days per week do you engage in moderate to strenuous exercise (like a brisk walk)?Patient hoccfyji55/13/2024On average, how many minutes do you engage in exercise at this level?Patient /13/2024Hunger Vital SignAnswerDate RecordedWithin the past 12 months, [...] steady place to sleep or slept in heronelter (including now)?No05/18/2023CommentsUnknownSex and Gender InformationValueDate RecordedSex Assigned at BirthNot on fileLegal SexFemale 06/17/2022 7:05 PM EDTGender IdentityNot on fileSexual OrientationNot on file Last Filed Vital Signs Vital SignReadingTime TakenCommentsBlood Sgrwkvsu641/76004/30/2024 9:11 AM EST Gtxur543104/30/2024 9:11 AM MESDpgpfmtdjjm68.9 ??C (96.6 ??F)04/30/2024 9:11 AM ESTRespiratory Nxwh832604/20/2024 10:39 AM ESTOxygen Fkaveutefl58%04/30/2024 9:11 AM ESTInhaled Oxygen Concentration--Rvzcbn33.3 kg (177 lb)04/20/2024 10:39 AM MNHNjiitp542.8 cm (5' 2.5 )04/20/2024 10:39 AM ESTBody Mass Index31.8604/20/2024 10:39 AM EST Plan of Treatment Not on file Care Teams Team MemberRelationshipSpecialtyStart DateEnd Date Usama Billy MD PCP - GeneralFamily Medicine05/05/23
--- OUTSIDE RECORDS SUMMARY | 2025-02-13 06:20 | XMS_ITS | CCD ---
Author Organization [facility] Care Team Providers Care [employer] Name Role Phone DR USAMA WATTS Admitting Unavailable MAC, DR USAMA Aranda Attending Unavailable MAC, DR USAMA Aranda Primary Care Unavailable WEST, DR JASMINE Estevez Consulting Unavailable MAC, DR USAMA Aranda Consulting Unavailable Usama Watts MD Primary Care Provider [phone] ALICIA BROWN Attending Unavailable AMAURY MADDOX Attending Unavailable MAC, USAMA Attending Unavailable MAC, USAMA Attending Unavailable USAMA WATTS Attending Unavailable Allergies Allergy ClassificationReported Allergen(s)Allergy TypeDate of OnsetReaction(s) Facility (1 source)PlasminDrug Haeaczb50-52-9096Chu [facility] Repository (6 sources)SUMAtriptanDrug Ziurids13-08-7986MztgEGGT [facility] Medications Current Medications MedicationDrug Class(es)DatesSig (Normalized)Sig (Original)acetaminophen 325 mg / butalbital 50 mg / caffeine 40 mg oral tablet (8 sources)Barbiturate, Central Nervous System Stimulant, MethylxanthineStart: 82-75-0733qetf 1 tablet by mouth four times daily as needed for headache yjdlxgnxri-weyrjcshqmikw-dkqpapup 50-325-40 MG tablet Indications: Migraine without aura and without status migrainosus, not intractable (CMS/HCC) Take 1 tablet by mouth 4 (four) times a day as needed for headaches 60 tablet 2 04/20/2024 ActiveStart: 90-11-9072mghv 1 tablet by mouth four times daily as needed for qilwjtnvsmpioctivc-cjcccxxhbfjjq-ltnmdrbu 50-325-40 MG tablet Indications: Migraine without aura and without status migrainosus, not intractable (CMS/HCC) Take 1 tablet by mouth 4 (four) times a day as needed for headaches 60 tablet 2 04/20/2024 Active End: 01-20-1062tcuqrarfgn-acetaminophen-caffeine (Esgic) 50-325-40 MG capsule Eooxbdcutt-WOEO-Lvifrsws 04/20/2024 Zjchinqkmhojaqw241751 200 actuat albuterol 0.09 mg/actuat metered dose inhaler (6 sources)beta2-Adrenergic AgonistStart: 78-51-1063yqaj 2 puff(s) by inhalation every four hours for wheezingalbuterol HFA 90 mcg/act inhaler Indications: SOB (shortness of breath) on exertion Inhale 2 puffs every 4 (four) hours if needed for wheezing or shortness of breath 18 g 3 05/25/2023 ActiveAtogepant (Qulipta) 10 MG tablet (3 sources)Start: 10-12-2023 End: 43-69-3621dkva 1 tablet by mouth once dailyAtogepant (Qulipta) 10 MG tablet Indications: Migraine without aura and without status migrainosus,not intractable (CMS/HCC) Take 1 tablet by mouth Daily 30 tablet 3 10/12/2023 04/20/2024 DiscontinuedStart: 68-41-5758goix 1 tablet by mouth once daily Atogepant (Qulipta) 10 MG tablet Indications: Migraine without aura and without status migrainosus,not intractable (CMS/HCC) Take 1 tablet by mouth Daily 30 tablet 3 10/12/2023 Activecyproheptadine hydrochloride 4 mg oral tablet (6 sources)Start: 11-01-2023 End: 14-30-5376jxxe 2 tablets by mouth at bedtimecyproheptadine (Periactin) 4 MG tablet Indications: Migraine without aura and without status migrainosus, not intractable (CMS/HCC) Take 2 tablets (8 mg) by mouth at bedtime 60 tablet 11 11/01/2023 10/31/2024 Activedesonide 0.5 mg/ml topical cream (6 sources)CorticosteroidStart: 80-10-0832svophudx (DesOwen) 0.05 % cream Indications: Chronic eczema APPLY TO AFFECTED AREA 3 TIMES A DAY 15g 3 02/16/2024 Activeibuprofen 800 mg oral tablet (8 sources)Nonsteroidal Anti-inflammatory DrugStart: 29-12-6998xzna 1 tablet by mouth three times daily as needed for painibuprofen 800 MG tablet Indications: Migraine without aura and without status migrainosus, not intractable (CMS/HCC) Take 1 tablet (800 mg) by mouth 3 (three) times a day as needed for moderate pain 90 tablet 3 04/20/2024 ActiveStart: 84-55-8240zbmo 1 tablet by mouth three times daily as needed for painibuprofen 800 MG tablet Indications: Migraine without aura and without status migrainosus, not intractable (CMS/HCC) Take 1 tablet (800 mg) by mouth 3 (three) times a day as needed for moderate pain 90 tablet 3 04/20/2024 ActiveStart: 07-29-2022 End: 90-32-0896tmsm 1 tablet by mouth three times daily as neededibuprofen 800 MG tablet Take 800 mg by mouth 3 (three) times a day as needed 07/29/2022 04/20/2024 Discontinued (Reorder)Ketorolac (6 sources)Nonsteroidal Anti-inflammatory Drug, Cyclooxygenase Inhibitor KETOROLAC TROMETHAMINE PO Ketorolac Tromethamine ActivemethylPREDNISolone (2 sources)CorticosteroidStart: 04-30-2024 End: 92-46-4878kytltoAWRSOAAqjnna (Medrol Dospak) 4 MG tablets Indications: Cough, unspecified type , Viral upper respiratory illness Follow schedule on package instructions 21 tablet 04/30/2024 05/07/2024 ActivepredniSONE 50 mg oral tablet (3 sources)Start: 04-20-2024 End: 62-56-1152hvqk 1 tablet by mouth once dailypredniSONE (Deltasone) 50 MG tablet Indications: Dyshidrotic eczema Take 1 tablet (50 mg) by mouth Daily for 6 days 6 tablet 04/20/2024 04/26/2024 Activetopiramate 100 mg oral tablet (6 sources)Start: 01-13-2024 End: 03-94-6254cens 1 tablet by mouth in the morningtopiramate [...] aura, not intractable, without status migrainosus]Onset: 05-25-2023 64-46-7098DjehabvGskdnkmhljq deficiencies (6 sources)Vitamin D deficiency; Translations: [Vitamin D deficiency, unspecified]Onset: 407805-45-6918EsalzsnRlekm lower respiratory disease (2 sources)Cough; Translations: [Cough, unspecified type]25-54-9636BdngcdeeNepql nervous system disorders (6 sources)Bilateral carpal tunnel syndrome; Translations: [Carpal tunnel syndrome, bilateral upper limbs]Onset: 022786-03-1226OxqbmeqWtibk nutritional; endocrine; and metabolic disorders (1 source)Body mass index 30+ - obesity; Translations: [Obesity, unspecified] Onset: 041916-80-0186EvdmgtvPctpf nutritional; endocrine; and metabolic disorders (5 sources)Obesity caused by energy imbalance; Translations: [Class 1 obesity due to excess calories without serious comorbidity with body mass index (BMI) of 31.0 to 31.9 in adult]Onset: 877882-54-1596ZpqwjiaYhvxw screening for suspected conditions (not mental disorders or infectious disease) (1 source)Encounter for screening mammogram for malignant neoplasm of breast; Translations: [ENC SCR MAMMO MALIG NEOPLASM BREAST]Onset: 72-87-5718Vuizhpuy Other upper respiratory disease (6 sources)Allergic rhinitis due to pollen; Translations: [Allergic rhinitis due to pollen]Onset: 956220-94-3882NtebmrmBruuz upper respiratory infections (2 sources)Viral upper respiratory tract infection; Translations: [Acute upper respiratory infection, unspecified]78-65-3588PlhbsfxxEwufmbb disorders (2 sources)Subclinical hypothyroidism; Translations: [Other specified hypothyroidism]Onset: hronic Past or Other Problems Problem ClassificationProblemDateDocumented DateEpisodic/ChronicOther lower respiratory disease (6 sources)Dyspnea on exertion; Translations: [Shortness of breath]Onset: 468904-90-7457OdgnwzmfTohgo skin disorders (8 sources)Vesicular eczema; Translations: [Dyshidrosis [pompholyx]]Onset: 920410-74-4951GwjktrpuNimhptqu codes; unclassified (6 sources)Tobacco user; Translations: [Tobacco use]Onset: 425764-41-8211 Episodic Results Test NameValueInterpretationReference RangeFacilityLaboratory - Microbiology and Antimicrobial susceptibilityon 62-34-9595STFY-CoV-2 (COVID-19) RNA RICK+probe Ql (Unsp spec)NegativeNOND HealthcareNo Panel Informationon 74-68-9157ZQT ANegative NOMS HealthcareFLU BNegativeNOND HealthcareInterpretation and review of laboratory resultsNormalNOCedar County [facility] Hospital HealthcareALL CBC WITH AUTO DIFFon 43-53-4055FQBNVISTL ABSOLUTE AUTO0.1NOMS HealthcareBasophils/100 WBC (Bld)0.8 % 0.2 - 2.0 %NOMSaint John'S Breech Regional Medical CenterEosinophils/100 WBC (Bld)4.1 %0.9 - 7.0 %[facility] HealthErythrocyte distribution width (RBC) [Ratio]12.8 %11.0 - 15.0 %NOMSaint John'S Breech Regional Medical CenterHematocrit (Bld) [Volume fraction]45.5 %36.0 - 48.0 %[facility] Hemoglobin (Bld) [Mass/Vol]15 g/dL12.0 - 16.0 g/dLCarondelet HealthIMMATURE GRANULOCYTES ABS AUTO0.02NOWestern Missouri Medical CenterImmature granulocytes/100 WBC (Bld)0.2 % 0.0 - 0.5 %[facility] HealthcareInterpretation and review of laboratory results AbnormalNOND HealthcareLYMPHOCYTES ABSOLUTE AUTO3.5NOMS [facility] Lymphocytes/100 WBC (Bld)35.7 %20.5 - 60.0 %[place] [...] - 13.5 fLNOMS HealthcareTBH EO #0.4NOMS HealthcareTBH LUG372JEVH HealthcareTB RBC5.1NOMS HealthcareTB WBC9.8NOMS HealthcareCLINISYNCNOMS HealthcareCBC AUTO DIFFon [id number] #0.1 103/ulNormal0.0-0.1The [facility] HospitalComment on above:Performed By: #### CBC #### [facility] [address] [place] [address] Dr. Zi LujanBasophils/100 WBC (Bld)0.6 %Normal0.2-2.0[facility] Comment on above:Performed By: #### CBC #### [facility] [address] [address] [address] Zi Jalloh #0.4 103/ulNormal0.0-0.7The [facility] HospitalComment on above: Performed By: #### CBC #### [facility] [address] [place] [address] Dr. Zi Mosherosinophils/100 WBC (Bld)4.3 %Normal0.9-7.0[facility] Comment on above:Performed By: #### CBC #### [facility] [address] [address] [address] Zi Mosherrythrocyte distribution width (RBC) [Ratio]13.7 %Ekyflc29.0-15.0 [facility] SpringfieldComment on above:Performed By: #### CBC #### [facility] [address] [place] [address] Dr. Zi LujanHematocrit (Bld) [Volume fraction]41.1 %Ijuzxw48.0-48.0[facility] SpringfieldComment on above:Performed By: #### CBC #### [facility] [address] [place], [place] [id number] Dr. Zi LujanHemoglobin (Bld) [Mass/Vol]12.9 g/pXFlvisq89.0-16.0The [facility] HospitalComment on above:Performed By: #### CBC #### [facility] [address] [place] [address] Dr. Zi Hernández #0.03 10e3/ulNormal0.00-0.03The [facility] HospitalComment on above:Performed By: #### CBC #### [facility] [address] [place] [address] Dr. Zi Hernández %0.4 %Normal0.0-0.5The [facility] HospitalComment on above: Performed By: #### CBC #### [facility] [address] [place] [address] Dr. Zi Bain #2.5 103/ulNormal1.2-3.8The [facility] HospitalComment on above:Performed By: #### CBC #### [facility] [address] [place] [address] Dr. Zi Bainhocytes/100 WBC (Bld)29.0 %Alkllw20.5-60.0The [facility] HospitalComsurgeons choice medical center on above:Performed By: #### CBC #### [facility] [address] [place] [address] Dr. Zi SilvaUAL DIFF REQNONormalThe [facility] HospitalComment on above: Performed By: #### CBC #### [facility] [address] [place] [address] Dr. Zi Verma (RBC) [Entitic mass]27.6 uxKdbyie05.7-34.0The [facility] HospitalComment on above:Performed By: #### CBC #### [facility] [address] [place] [address] Dr. Zi Verma (RBC) [Mass/Vol]31.4 g/tTIhnkbh04.9-35.2The [facility] HospitalComment on above:Performed By: #### CBC #### [facility] [address] [address] [address] Zi VermaV (RBC) [Entitic vol]88.0 kVHfqenq72.0-99.0The Parkview Healthment on above:Performed By: #### CBC #### [facility] [address] [place] [address] Dr. Zi Bueno #0.6 103/ulNormal0.3-0.8The [facility] HospitalComment on above:Performed By: #### CBC #### [facility] [address] [place] [address] Dr. Zi Jacquesocytes/100 WBC (Bld)7.2 %Normal1.7-12.0The [facility] Comment on above:Performed By: #### CBC #### [facility] [address] [place] [address] Dr. Zi LevyUT #5.0 103/ulNormal1.4-6.5The [facility] HospitalComment on above:Performed By: #### CBC #### [facility] [address] [place] [address] Dr. Zi Levyutrophils/100 WBC (Bld)58.5 %Fpohci86.0-75.0The Park[facility] Healthment on above:Performed By: #### CBC #### [facility] [address] [place] [address] Dr. Zi Pettitlet mean volume (Bld) [Entitic vol]10.3 fLNormal9.5-13.5The [facility] HospitalComment on above:Performed By: #### CBC #### [facility] [address] [place] [address] Dr. Zi LujanPLT260 103/noSkuvjx181-322Ame [facility] HospitalComment on above: Performed By: #### CBC #### [facility] [address] [place] [address] Dr. Zi LujanRBC4.67 106/ulNormal4.20-5.40The Parkview Healthment on above:Performed By: #### CBC #### [facility] [address] [address] [address] Zi LujanWBC8.5 103/ulNormal4.0-11.0The [facility] HospitalComment on above: Performed By: #### CBC #### [facility] [address] [address] [address] Zi LujanGLYCOHEMOGLOBIN A1Con 74-67-6941WVF RECOMMENDATIONADA THERAPEUTIC TARGET 6.0 - 7.0 ACTION SUGGESTED > 7.0Fisher-Titus Medical CenterComment on above:Performed By: #### A1C #### [facility] [address] [address] [address] Zi LujanGlucose [Mass/Vol]105 mg/dLNoUniversity Hospitals Parma Medical CenterComment on above:Performed By: #### A1C #### [facility] [address] [place] [address] Dr. Zi LujanHbA1c (Bld) [Mass fraction]5.3 %Normal<=6.0[facility] Comment on above:Performed By: #### A1C #### [facility] [address] [address] [address] Zi LujanLIPID PROFILEon 03-31-5551THCI-HDL RATIO NORMSUniversity Hospitals Ahuja Medical CenterComment on above:Result Comment: 3.3 - 4.4 LOW RISK 4.4 - 7.1 AVERAGE RISK 7.1 - 11.0 MODERATE RISK >11.0 HIGH RISKPerformed By: #### LIPID, BMP, TSH, LIVER #### [facility] [address] [address] [address] Zi LujanCholesterol [Mass/Vol]184 mg/dLNormal<=200The [facility] Comment on above:Performed By: #### LIPID, BMP, TSH, LIVER #### [facility] [address] [address] [address] Zi LujanCholesterol in HDL [Mass/Vol]39 mg/dLCritically mdf67-96Der [facility] HospitalComment on above:Performed By: #### LIPID, BMP, TSH, LIVER #### [facility] [address] [address] [address] Zi Billingsesterol in LDL [Mass/Vol]106.8 mg/dLOhioHealth Pickerington [facility] Hospital on above:Performed By: #### LIPID, BMP, TSH, LIVER #### [facility] [address] [address] [address] Zi Mccall.total/Cholesterol in HDL [Mass ratio]4.7 {ratio} NormalThe [facility] HospitalComsurgeons choice medical center on above:Performed By: #### LIPID, BMP, TSH, LIVER #### [facility] [address] [address] [address] Zi Hammer NORMAL> or = 60 mg/dl - LOW CARDIOVASCULAR RISK <40 mg/dl - HIGH CARDIOVASCULAR RISKFisher-Titus Medical CenterComsurgeons choice medical center on above:Performed By: #### LIPID, BMP, TSH, LIVER #### [facility] [address] [place] [address] Dr. Zi Vo CALC NORMALSEE BELOWNoUniversity Hospitals Parma Medical CenterComment on above:Result Comment: <100 mg/dl OPTIMAL 100 - 129 mg/dl NEAR OR ABOVE OPTIMAL 130 - 159 mg/dl BORDERLINE HIGH 160 - 189 mg/dl HIGH >190 mg/dl VERY HIGH Performed By: #### LIPID, BMP, TSH, LIVER #### [facility] [address] [place] [address] Dr. Zi LujanTriglyceride [Mass/Vol]191 mg/dLCritically high<=150The [facility] on above:Performed By: #### LIPID, BMP, TSH, LIVER #### [facility] [address] [place] [address] Dr. Zi Salas CALC38.2 mg/dLNoUniversity Hospitals Parma Medical CenterComsurgeons choice medical center on above: Performed By: #### LIPID, BMP, TSH, LIVER #### [facility] [address] [place] [address] Dr. Zi Roper PROFILEon 61-15-6177Oksywvf [Mass/Vol]3.5 g/dLNormal3.4-5.0 The [facility] HospitalComsurgeons choice medical center on above:Performed By: #### LIPID, BMP, TSH, LIVER #### [facility] [address] [place] [address] Dr. Zi LujanAlbumin/Globulin [Mass ratio]1.0 {ratio}NormalThe [facility] HospitalComment on above:Performed By: #### LIPID, BMP, TSH, LIVER #### [facility] [address] [place] [address] Dr. Zi Kingston [Catalytic activity/Vol]100 U/ZSvpufc56-208Pqx [facility] HospitalComment on above:Performed By: #### LIPID, BMP, TSH, LIVER #### [facility] [address] [place] [address] Dr. Zi Sawyer [Catalytic activity/Vol]40 U/ESjjzyj15-23Jga [facility] HospitalComment on above:Performed By: #### LIPID, BMP, TSH, LIVER #### [facility] [address] [place] [address] Dr. Zi Shi [Catalytic activity/Vol]20 U/WKcfbwi79-89Orb [facility] HospitalComment on above:Performed By: #### LIPID, BMP, TSH, LIVER #### [facility] [address] [place] [address] Dr. Zi Romero, CONJUGATED<0.3Fqgbem5.0-0.3The [facility] HospitalComment on above:Performed By: #### LIPID, BMP, TSH, LIVER #### [facility] [address] [place] [address] Dr. Zi Antonioirubin [Mass/Vol]0.2 mg/dLNormal0.2-1.3TOhio Valley Hospital on above:Performed By: #### LIPID, BMP, TSH, LIVER #### [facility] [address] [place] [address] Dr. Zi LujanGlobulin (S) [Mass/Vol]3.5 g/dLNormalThe [facility] HospitalComment on above:Performed By: #### LIPID, BMP, TSH, LIVER #### [facility] [address] [place] [address] Dr. Yilan ChangProtein [Mass/Vol]7.0 g/dLNormal6.1-8.2[facility] Comment on above:Performed By: #### LIPID, BMP, TSH, LIVER #### [facility] [address] [place], [place] [address] Dr. Zi LujanMG MAMM SCREEN 3D RUTH CADon 18-84-0351YN MAMM SCREEN 3D RUTH CAD Patient: IRENE BAKER Exam Date: 07/17/2021 : 1970 Gender:F Ordering : DR USAMA WATTS . Admission #: [id number] Family : Order #: [id number] CLICK HERE TO VIEW EXAM RADIOLOGY REPORT PROCEDURE: MAMMOGRAM SCREENING 3D BILATERAL CAD COMPARISON: MG MAMM SCREEN RUTH W CAD, 10/28/2016. INDICATIONS: Screening mammography Calculator Name NCI Breast Cancer Risk Assessment Tool 5 Year Breast Cancer Risk 0.70% Lifetime Breast Cancer Risk 6.50% Personal Breast Cancer No Personal Ovarian Cancer No Treatments None Family Cancers None LOCATION: [facility] BREAST COMPOSITION: Heterogeneously dense,which may obscure [...] by: Jasmine Jay MD on 07/17/2021 at 11:53NoUniversity Hospitals Parma Medical CenterPROF CHEM 8 (BAS METB)on 00-25-5327Zpdzv gap [Moles/Vol]11.3 mmol/LNormalKettering Health SpringfieldComment on above:Performed By: #### LIPID, BMP, TSH, LIVER #### [facility] [address] [place], [place] [address] Dr. Zi LujanCalcium [Mass/Vol]8.6 mg/dLNormal8.5-10.1[facility] Comment on above:Performed By: #### LIPID, BMP, TSH, LIVER #### [facility] [address] [address] [address] Zi LujanChloride [Moles/Vol]106 mmol/JQosqyy95-480LicKettering Health Springfield Comment on above:Performed By: #### LIPID, BMP, TSH, LIVER #### [facility] [address] [address] [address] Zi LujanCO2 [Moles/Vol]24.7 mmol/ONlygts91.0-30.0[facility] Comment on above:Performed By: #### LIPID, BMP, TSH, LIVER #### [facility] [address] [address] [address] Zi LujanCreatinine [Mass/Vol]0.92 mg/dLNormal0.52-1.04[facility] SpringfieldComment on above:Performed By: #### LIPID, BMP, TSH, LIVER #### [facility] [address] [address] [address] Zi MosherGFR-AF MOROCCAN>60Normal>=60The [facility] HospitalComment on above:Performed By: #### LIPID, BMP, TSH, LIVER #### [facility] [address] [place] [address] Dr. Zi Ashley-NON AF MOROCCAN>60Normal>=60[facility] SpringfieldComment on above:Performed By: #### LIPID, BMP, TSH, LIVER #### [facility] [address] [address] [address] Zi LujanGlucose [Mass/Vol]96 mg/xHVpulhn21-696NqtKettering Health Springfield Comment on above:Performed By: #### LIPID, BMP, TSH, LIVER #### [facility] [address] [address] [address] Zi LujanPotassium [Moles/Vol]4.0 mmol/LNormal3.4-5.0[facility] Comment on above:Performed By: #### LIPID, BMP, TSH, LIVER #### [facility] [address] [address] [address] Zi LujanSodium [Moles/Vol]138 mmol/AMjfozd713-769Ezi [facility] Comment on above:Performed By: #### LIPID, BMP, TSH, LIVER #### [facility] [address] [place] [address] Dr. Zi Pagan nitrogen [Mass/Vol]15.0 mg/dLNormal7.0-18.0The [facility] HospitalComment on above:Performed By: #### LIPID, BMP, TSH, LIVER #### [facility] [address] [place] [address] Dr. Zi Pagan nitrogen/Creatinine [Mass ratio]16.3 mg/mgNoUniversity Hospitals Parma Medical CenterComment on above:Performed By: #### LIPID, BMP, TSH, LIVER #### [facility] [address] [place] [address] Dr. Zi Michelle 51-38-2609KGQ9.816 uIU/mLNormal0.470-4.680The [facility] HospitalComment on above:Performed By: #### LIPID, BMP, TSH, LIVER #### [facility] [address] [place] [address] Dr. Zi BRASWELL BELOWFisher-Titus Medical CenterComment on above: Result Comment: <0.34 UIU/ml HYPERTHYROID 0.34-5.60 UIU/ml EUTHYROID >5.60 UIU/ml HYPOTHYROIDPerformed By: #### LIPID, BMP, TSH, LIVER #### [facility] [address] [place] [address] Dr. Zi LujanVITAMIN D 25 OHon 08-63-1609UDU D 25-OH14.6 ng/mLNormalThe [facility] HospitalComment on above:Performed By: #### VITAD #### [facility] [address] [place] [address] Dr. Zi BRODYRafa [facility]ome[facility] Memorial HospitalComment on above: Result Comment: <20 ng/mL Vit D deficient 20 - <30 ng/mL Vit D insufficient 30 - 100 ng/mL Vit D sufficient >100 ng/mL Potential ToxicityPerformed By: #### VITAD #### [facility] [address] [address] [address] Zi Lujan Vital Signs Date TimeVital SignValuePerforming BwhnaqmvqBnxrpvcy61-25-7112 09:11-0500Body jlqzevnwcnc39.6 [degF]Aliciaclaudio Brown OFFICER CAPTAIN Work Phone: [facility] HealthTpukbtdgrj83-76-0269 09:11-0500Diastolic blood emqbgvia30 mm[Hg]Alicia Brown OFFICER CAPTAIN Work Phone: [phone] [place], [place] [address]Likmsuwjfm11-14-3127 09:11-0500Heart rate97 /min Alicia Brown OFFICER CAPTAIN Work Phone: [facility] HealthUwfclwdrbh11-97-7523 09:11-8162RwU6% (BldA) [Mass fraction]98 %Alicia Brown OFFICER CAPTAIN Work Phone: [facility] HealthEwcmiymglc41-61-3844 09:11-0500Systolic blood wgoaitxg822 mm[Hg]Alicia Brown OFFICER CAPTAIN Work Phone: [facility] HealthFfonrzjmxw45-47-4698 10:39-0500Body .8 cmUsama Watts MD Work Phone: [facility] HealthUphgxjczre12-42-4705 10:39-0500Body mass index (BMI) [Ratio]31.86 kg/m2Usama Watts MD Work Phone: [facility] HealthGxucdjvyvl44-37-9993 10:39-0500Body temperature 96.6 [degF]Usama Watts MD Work Phone: [facility] HealthNtnqrzkcrg95-88-5381 10:39-0500Body fvmxpa12.29 kgUsama Watts MD Work Phone: [facility] HealthSmwcanfnny98-32-7944 10:39-0500Diastolic blood fezlqzbg77 mm[Hg]Usama Watts MD Work Phone: [facility] HealthDelncwwqvc96-49-6682 10:39-0500Heart rate58 /min Usama Watts MD Work Phone: [facility] HealthCqugnxotta82-29-7664 10:39-0500Respiratory rate20 /minUsama Watts MD Work Phone: [facility] Uotxvvxzfw34-27-4226 10:39-9101BgH4% (BldA) [Mass fraction]96 %Usama Watts MD Work Phone: [facility] Fjxqsvkugk83-31-8581 10:39-0500Systolic blood kyvthhze388 mm[Hg]Usama Watts MD Work Phone: [facility] Encounters Encounter DateEncounter TypeCare ProviderFacilityStart: 04-30-2024 End: 43-58-6184Bqlfct outpatient visit 25 minutesLindsmat Brown OFFICER CAPTAIN Work Phone: [facility] SWS UCComment on above:Viral upper respiratory illness (Primary Dx); Cough, unspecified typeStart: 04-30-2024 End: 77-28-9555lodtpbkyvbWWXNUJM N AUSTINNot AvailableStart: 04-20-2024 End: 08-71-4229Vzofha flowsheetUsama Watts MD Work Phone: [facility] FMStart: 04-20-2024 End: 83-76-2502Btwtys flowsheetUsama Watts MD Work Phone: [facility] CW FMStart: 04-20-2024 End: 16-35-3456Jlhbqogex Result EncounterUsama Watts MD Work Phone: [facility] External Department UnsolicitedStart: 04-20-2024 End: 99-96-8974Zdkjokf encounter procedureUsama Watts MD Work Phone: [facility] Work Phone: Start: 04-20-2024 End: 50-98-4510Epmykbyl preventive med est patient 40-64yrsManderson Watts MD Work Phone: [facility] FMComment on above:Annual physical exam (Primary Dx); Migraine without aura and without status migrainosus, not intractable (CMS/HCC); Dyshidrotic eczemaStart: 04-20-2024 End: 93-06-0722mdowpghxoiUMCN NADERERNot AvailableStart: 10-12-2023 End: 24-49-3323aowknfbxogHKNL NADERERNot AvailableStart: 27-69-2644Xxlqwqz encounter procedureUsama Watts MD Work Phone: [facility] HealthcareStart: 05-25-2023 End: 34-09-3546sgqnqjkprcNSSR NADERERNot AvailableStart: 05-07-2023 End: 00-82-3179jabprreiypHCLNSD Emani WORKMANNot AvailableStart: 80-34-4069Civbjfiwf for general adult medical examination without abnormal findingsDR USAMA COLBYRTjakob Cuthbert HospitalStart: 07-17-2021 End: 66-38-6503jwjalxqggeHK USAMA Aranda NADERERFacility:W6Wpknz: 07-17-2021 End: 87-92-2331Fvaybjcvn for general adult medical examination without abnormal findingsDR USAMA Aranda NADERERFacility:H1 Procedures DateProcedureProcedure DetailPerforming ClinicianStart: 97-42-7493FNIERY COVID-19/FLUAlireza Garcia DO Work Phone: Start: 44-55-1336SZH CBC WITH AUTO DIFFUsama Watts MD Work Phone: Start: 15-40-4267LykwfvsogeyOjos Naderer MD Work Phone: Plan of Treatment DateCare ActivityDetailAuthorStart: 10-19-2024 End: 14-06-7219Bscyzvy encounter xaeaonysj64/17/2025 9:00 AM EDT Office Visit [facility] [address] [place] [address] Usama Watts MD [address] [place] [address] [facility] FMStart: 39-87-5185Jqqmqzhvm for malignant neoplasm of colonNOMS HealthcareStart: 38-79-9182Yzbxuexdz for malignant neoplasm of colonNOMS HealthcareStart: 60-93-7396Bvnaoewxp for malignant neoplasm of breastMammogram [facility] HealthcareComment on above:Postponed from 07/17/2022 (Patient Refused) Start: 04-20-2024 End: 82-37-2144Agkhm metabolic 1998 panel - Serum or PlasmaBasic metabolic panel Lab Routine Annual physical exam Expected: 04/20/2024 (Approximate), Ex[facility]: [facility]2025[facility] HealthcareComment on above:Expected: 04/20/2024 (Approximate), Expires: 04/20/2025Start: 04-20-2024 End: 60-85-7812VKR W Auto Differential panel - BloodCBC and differential Lab Routine Annual physical exam Expected: 04/20/2024 (Approximate), Expires: 0 04/20/2025[facility] HealthcareComment on above:Expected: 04/20/2024 (Approximate), Expires: 04/20/2025Start: 04-20-2024 End: 52-46-2732Vxokbtwril A1c/Hemoglobin.total in BloodHemoglobin A1c Lab Routine Annual physical exam Expected: 04/20/2024 (Approximate), Expires: 04/20/2025[facility] Healthcare Work Phone: Comment on above:Expected: 04/20/2024 (Approximate), Expires: 04/20/2025Start: 04-20-2024 End: 17-44-6257Gzevbjd function 2000 panel - Serum or PlasmaHepatic function panel Lab Routine Annual physical exam Expected: 04/20/2024 (Approximate), Expires: 04/20/2025[facility] HealthcareComment on above:Expected: 04/20/2024 (Approximate), Expires: 04/20/2025Start: 04-20-2024 End: 72-13-9484Gfkqk 1996 panel - Serum or PlasmaLipid panel Lab Routine Annual physical exam Expected: 04/20/2024 (Approximate), Expires: 04/20/2025[facility] HealthcareComment on above:Expected: 04/20/2024 (Approximate), Expires: 04/20/2025Start: 04-20-2024 End: 88-68-4176Kfzagmgodsj [Units/volume] in Serum or PlasmaTSH Lab Routine Annual physical exam Expected: 04/20/2024 (Approximate), Expires: 04/20/2025[facility] HealthcareComment on above:Expected: 04/20/2024 (Approximate), Expires: 04/20/2025Start: 04-20-2024 End: 84-12-1750Mxiodiy encounter /16/2025 10:15 AM EST Office Visit [facility] [address] [place] [address] Usama Watts MD [address] [place] [address] [facility]SCR[facility] FMComment on above:ArrivedStart: 47-89-2995Pvdofoxmc vaccinationInfluenza Vaccine (#1)[facility] HealthcareStart: 31-13-2574Cimmmbejn for malignant neoplasm of cervixNOMS HealthcareStart: 24-43-5896Hcforfceh for malignant neoplasm of cervixPap SmearNOMS HealthcareStart: 91-85-2459Iyywbebvl for malignant neoplasm of colonNOND Healthcare Immunizations Immunization DateImmunizationNotesCare AgkzuqaqXllumxbm99-55-1713zoitktc, mumps and rubella virus vaccineUsama Watts MD Work Phone: [facility] HealthWcemqhbtgv97-27-0249gmtuqpx toxoid, reduced diphtheria toxoid, and acellular pertussis vaccine, adsorbedUsama Watts MD Work Phone: [facility] Payers DatePayer CategoryPayerPolicy [id number] Member Subscriber Plan / Payer (Effective 2022-Present) Name: Irene Bakerember ID: [id number] Relation to Subscriber: Self Name: Irene Baker Payer ID: Not on file Type: Not on file Address: [address] [id number] 2..[id number] [id number] [id number] 2..0.1.275484.3.57[id number] 2..0.1.889637.3.57[id number] 2..0.1.434481.3.57[id number] 2..0.1.197148.3.57[id number] Social History DateTypeDetailFacilityStart: 64-92-2029Nscuzvr smoking status NHISSmokes tobacco dailyNOND HealthcareHistory of tobacco useCigarette SmokerNOND HealthcareStart: 05-18-2023 End: 68-92-9515Mjmukbapqd smoked current (pack per day) - Tzzsziha5GNHE HealthcareStart: 62-01-7705Zudfilm use and exposureSmokeless tobacco non-user [facility] HealthcareStart: 10-12-2023 End: 41-27-3334Smdairgxu beverage intakeEx-drinker (finding)[facility] Start: 05-18-2023 End: 31-97-7596Mqyrweflzyx, Afraid, Rape, and Kick questionnaire [HARK][facility] HealthcareWithin [...] to buy more.Never trueNOMS HealthcareStart: 04-26-2023 Tobacco Ueufkxx60-58 cigs/dayNOMS HealthcareStart: 64-93-6185Cfy assigned at birthNot on [facility] History of Present illness Narrative 04-30-2024 Note Date & UwiqXuexAictbmib48-30-3278 History of Present illness Narrative* Alicia Brown, OFFICER CAPTAIN - 04/30/2024 9:15 AM EST Images from the original note were not included. [address] , [address] [facility], [address] P: [phone] F: [phone] HPI Historian of HPI: patient Irene Baker [...] Left Turbinates: Enlarged and swollen. Mouth/Throat: Lips: [place]. Mouth: Mucous membranes are moist. Pharynx: Oropharynx [...] Present illness Narrative 04-20-2024 Note Date & HppsMoprImxrcanc66-41-7316 History of Present illness Narrative* sUama Watts MD - 04/20/2024 12:11 PM ESTAssociated [...] PRN. Relevant Medications ibuprofen 800 MG tablet xhjzqkjzjp-npsfyorlrvkar-ngcvwrzr 50-325-40 MG tablet Annual physical exam - [...] panel Lipid panel TSH documented in this encounterNOND Healthcare Evaluation note Note Date & TypeNoteFacilityEvaluation [...] Cough, unspecified type documented in this encounter [facility] Summary Purpose Family History No Family History Records FoundNo Family History Records Found Advance Directives No Advanced Directives Records FoundNo Advanced Directives Records Found Additional Source Comments INFORMATION SOURCE (unrecogn ized section and content) DATE CREATED AUTHOR 07/24/2021 [facility] DATE CREATED AUTHOR AUTHOR'S ORGANIZ ATION 04/30/2024 [facility] EPIC Care Teams (unrecognized sec tion and content) Team MemberRelationshipSpecialtyStart DateEnd Date Usama Watts MD [address] [place] [address] PCP - GeneralFami Medicine05/05/23Te MemberRelationshipSpecialtyStsouth bend DateEnd Date Usama Watts MD [address] [place] [address] [facility]05/05/23Te MemberRelationsCox Walnut LawnialtyGrants[place] DateEnd Date Usama Watts MD [address] [place] [address] [facility] - [facility]05/05/23Te MemberRelationsCox Walnut LawnialtyGrants[place] DateEnd Date Usama Watts MD [address] [place] [address] PCP - [facility]05/05/23 Reason for Visit (unrecogniz ed section [...] BE BASED ON THE PRIMARY CLINICAL RECORDS. [employer] [facility]. provides no warranty or guarantee of the accuracy or completeness of information in this document.
--- OUTSIDE RECORDS SUMMARY | 2025-02-13 07:09 | XMS_ITS | CCD ---
Author Organization [facility] Care Team Providers Care Senior Cyber Security Analyst Name Role Phone DR USAMA WATTS Admitting [...] Allergen(s)Allergy TypeDate of OnsetReaction(s) Facility (1 source)PlasminDrug Xvguyxh19-26-6124Mmj [facility] Repository (6 sources)SUMAtriptanDrug Fmdokpl03-85-4917HtwkRICH Healthcare Medications Current Medications MedicationDrug Class(es)DatesSig (Normalized)Sig (Original)acetaminophen 325 mg / butalbital 50 mg / caffeine 40 mg oral tablet (8 sources)Barbiturate, Central Nervous System Stimulant, MethylxanthineStart: 64-09-6695wpaa 1 tablet by mouth four times daily as needed for headache ldinbfxlqx-hhzzdfasqawpt-kpltqbkk 50-325-40 MG tablet Indications: Migraine without aura and without status migrainosus, not intractable (CMS/HCC) Take 1 tablet by mouth 4 (four) times a day as needed for headaches 60 tablet 2 04/20/2024 ActiveStart: 17-99-5714jqcy 1 tablet by mouth four times daily as needed for gjbxbjzcndbhjyggpx-utobbuaskdqms-hsxockjz 50-325-40 MG tablet Indications: Migraine without aura and without status migrainosus, not intractable (CMS/HCC) Take 1 tablet by mouth 4 (four) times a day as needed for headaches 60 tablet 2 04/20/2024 Active End: 48-91-3936asnssizkha-acetaminophen-caffeine (Esgic) 50-325-40 MG capsule Npwjwfeuuk-XNIT-Eymhwxmd 04/20/2024 Agzljolyawhlxqv631625 200 actuat albuterol 0.09 mg/actuat metered dose inhaler (6 sources)beta2-Adrenergic AgonistStart: 59-07-9237axxm 2 puff(s) by inhalation every four hours for wheezingalbuterol HFA 90 mcg/act inhaler Indications: SOB (shortness of breath) on exertion Inhale 2 puffs every 4 (four) hours if needed for wheezing or shortness of breath 18 g 3 05/25/2023 ActiveAtogepant (Qulipta) 10 MG tablet (3 sources)Start: 10-12-2023 End: 85-31-9913gpvi 1 tablet by mouth once dailyAtogepant (Qulipta) 10 MG tablet Indications: Migraine without aura and without status migrainosus,not intractable (CMS/HCC) Take 1 tablet by mouth Daily 30 tablet 3 10/12/2023 04/20/2024 DiscontinuedStart: 22-66-0446ymmb 1 tablet by mouth once daily Atogepant (Qulipta) 10 MG tablet Indications: Migraine without aura and without status migrainosus,not intractable (CMS/HCC) Take 1 tablet by mouth Daily 30 tablet 3 10/12/2023 Activecyproheptadine hydrochloride 4 mg oral tablet (6 sources)Start: 11-01-2023 End: 40-95-6491zowb 2 tablets by mouth at bedtimecyproheptadine (Periactin) 4 MG tablet Indications: Migraine without aura and without status migrainosus, not intractable (CMS/HCC) Take 2 tablets (8 mg) by mouth at bedtime 60 tablet 11 11/01/2023 10/31/2024 Activedesonide 0.5 mg/ml topical cream (6 sources)CorticosteroidStart: 63-56-2684jexstjtn (DesOwen) 0.05 % cream Indications: Chronic eczema APPLY TO AFFECTED AREA 3 TIMES A DAY 15g 3 02/16/2024 Activeibuprofen 800 mg oral tablet (8 sources)Nonsteroidal Anti-inflammatory DrugStart: 37-17-9034khzb 1 tablet by mouth three times daily as needed for painibuprofen 800 MG tablet Indications: Migraine without aura and without status migrainosus, not intractable (CMS/HCC) Take 1 tablet (800 mg) by mouth 3 (three) times a day as needed for moderate pain 90 tablet 3 04/20/2024 ActiveStart: 20-51-0260cpio 1 tablet by mouth three times daily as needed for painibuprofen 800 MG tablet Indications: Migraine without aura and without status migrainosus, not intractable (CMS/HCC) Take 1 tablet (800 mg) by mouth 3 (three) times a day as needed for moderate pain 90 tablet 3 04/20/2024 ActiveStart: 07-29-2022 End: 50-52-5933vbga 1 tablet by mouth three times daily as neededibuprofen 800 MG tablet Take 800 mg by mouth 3 (three) times a day as needed 07/29/2022 04/20/2024 Discontinued (Reorder)Ketorolac (6 sources)Nonsteroidal Anti-inflammatory Drug, Cyclooxygenase Inhibitor KETOROLAC TROMETHAMINE PO Ketorolac Tromethamine ActivemethylPREDNISolone (2 sources)CorticosteroidStart: 04-30-2024 End: 94-89-9826cuqdhmTHXAMUUfofqc (Medrol Dospak) 4 MG tablets Indications: Cough, unspecified type , Viral upper respiratory illness Follow schedule on package instructions 21 tablet 04/30/2024 05/07/2024 ActivepredniSONE 50 mg oral tablet (3 sources)Start: 04-20-2024 End: 70-83-9529mnem 1 tablet by mouth once dailypredniSONE (Deltasone) 50 MG tablet Indications: Dyshidrotic eczema Take 1 tablet (50 mg) by mouth Daily for 6 days 6 tablet 04/20/2024 04/26/2024 Activetopiramate 100 mg oral tablet (6 sources)Start: 01-13-2024 End: 84-57-3236jqqe 1 tablet by mouth in the morningtopiramate [...] aura, not intractable, without status migrainosus]Onset: 05-25-2023 50-74-9675QtmpcohJzzjetplnae deficiencies (6 sources)Vitamin D deficiency; Translations: [Vitamin D deficiency, unspecified]Onset: 521706-40-1154QvbvlvmUuyta lower respiratory disease (2 sources)Cough; Translations: [Cough, unspecified type]76-84-5998LbokgwkxSwjlj nervous system disorders (6 sources)Bilateral carpal tunnel syndrome; Translations: [Carpal tunnel syndrome, bilateral upper limbs]Onset: 689940-58-3366DoygkcmZoubo nutritional; endocrine; and metabolic disorders (1 source)Body mass index 30+ - obesity; Translations: [Obesity, unspecified] Onset: 786583-64-5366NtzxhltMxcyz nutritional; endocrine; and metabolic disorders (5 sources)Obesity caused by energy imbalance; Translations: [Class 1 obesity due to excess calories without serious comorbidity with body mass index (BMI) of 31.0 to 31.9 in adult]Onset: 865389-76-9675BrnxyuaBkcyi screening for suspected conditions (not mental disorders or infectious disease) (1 source)Encounter for screening mammogram for malignant neoplasm of breast; Translations: [ENC SCR MAMMO MALIG NEOPLASM BREAST]Onset: 61-00-8057Mozrjzsr Other upper respiratory disease (6 sources)Allergic rhinitis due to pollen; Translations: [Allergic rhinitis due to pollen]Onset: 547568-71-4841XknezhxRyxvb upper respiratory infections (2 sources)Viral upper respiratory tract infection; Translations: [Acute upper respiratory infection, unspecified]54-41-8308IemiwpudRjkymcl disorders (2 sources)Subclinical hypothyroidism; Translations: [Other specified hypothyroidism]Onset: hronic Past or Other Problems Problem ClassificationProblemDateDocumented DateEpisodic/ChronicOther lower respiratory disease (6 sources)Dyspnea on exertion; Translations: [Shortness of breath]Onset: 248830-59-2063DyppekxgOtlti skin disorders (8 sources)Vesicular eczema; Translations: [Dyshidrosis [pompholyx]]Onset: 927950-34-9578EaehebcrEgfwbjdr codes; unclassified (6 sources)Tobacco user; Translations: [Tobacco use]Onset: 977436-97-7526 Episodic Results Test NameValueInterpretationReference RangeFacilityLaboratory - Microbiology and Antimicrobial susceptibilityon 33-84-1374GVLJ-CoV-2 (COVID-19) RNA RICK+probe Ql (Unsp spec)NegativeNOME HealthcareNo Panel Informationon 39-54-5959OCP ANegative NOMS HealthcareFLU BNegativeNOME HealthcareInterpretation and review of laboratory resultsNormalNOOzarks Community Hospital HealthcareALL CBC WITH AUTO DIFFon 62-55-5869IAVOGPVBO ABSOLUTE AUTO0.1NOMS HealthcareBasophils/100 WBC (Bld)0.8 % 0.2 - 2.0 %NOMSoutheast Missouri HospitalEosinophils/100 WBC (Bld)4.1 %0.9 - 7.0 %The Rehabilitation InstituteErythrocyte distribution width (RBC) [Ratio]12.8 %11.0 - 15.0 %NOMSoutheast Missouri HospitalHematocrit (Bld) [Volume fraction]45.5 %36.0 - 48.0 %[facility] Hemoglobin (Bld) [Mass/Vol]15 g/dL12.0 - 16.0 g/dLThe Rehabilitation InstituteIMMATURE GRANULOCYTES ABS AUTO0.02NOCox Walnut LawnImmature granulocytes/100 WBC (Bld)0.2 % 0.0 - 0.5 %[facility] HealthcareInterpretation and review of laboratory results AbnormalNOME HealthcareLYMPHOCYTES ABSOLUTE AUTO3.5NOMS [facility] Lymphocytes/100 WBC (Bld)35.7 %20.5 - 60.0 %[facility] HospitalH (RBC) [Entitic mass]29.4 pg26.7 - 34.0 pgSelect Specialty HospitalHC (RBC) [Mass/Vol]33 g/dL29.9 - 35.2 g/dLSelect Specialty HospitalV (RBC) [Entitic vol]89.2 fL81.0 - 99.0 fLThe Rehabilitation Institute MONOCYTES ABSOLUTE AUTO0.9HighThe Rehabilitation InstituteMonocytes/100 WBC (Bld)8.7 %1.7 - 12.0 %NOMS HealthcareNEUTROPHILS ABSOLUTE AUTO4.9NOMS HealthcareNeutrophils/100 WBC (Bld)50.5 %43.0 - 75.0 %NOMS HealthcarePlatelet mean volume (Bld) [Entitic vol]11 fL9.5 - 13.5 fLNOMS HealthcareTBH EO #0.4NOMS HealthcareTBH MYP875BXCC HealthcareTB RBC5.1NOMS HealthcareTB WBC9.8NOMS HealthcareCLINISYNCNOMS HealthcareCBC AUTO DIFFon 62-96-1201OFNH #0.1 103/ulNormal0.0-0.1The [facility]lower HospitalComment on above:Performed By: #### CBC #### [facility] [address] [place] [address] Dr. Zi LujanBasophils/100 WBC (Bld)0.6 %Normal0.2-2.0[facility] Comment on above:Performed By: #### CBC #### [facility] [address] [address] [address] Zi Jalloh #0.4 103/ulNormal0.0-0.7The [facility]lower HospitalComment on above: Performed By: #### CBC #### [facility] [address] [place] [address] Dr. Zi Mosherosinophils/100 WBC (Bld)4.3 %Normal0.9-7.0[facility] Comment on above:Performed By: #### CBC #### [facility] [address] [address] [address] Zi Mosherrythrocyte distribution width (RBC) [Ratio]13.7 %Dkoqmq87.0-15.0 [facility] HospitalComment on above:Performed By: #### CBC #### [facility] [address] [place] [address] Dr. Zi LujanHematocrit (Bld) [Volume fraction]41.1 %Spkjii61.0-48.0[facility] HospitalComment on above:Performed By: #### CBC #### [facility] [address] [place], [place] [address] Dr. Zi LujanHemoglobin (Bld) [Mass/Vol]12.9 g/sNUzqsfx80.0-16.0The [facility] HospitalComment on above:Performed By: #### CBC #### [facility] [address] [place] [address] Dr. Zi Hernández #0.03 10e3/ulNormal0.00-0.03The [facility] HospitalComment on above:Performed By: #### CBC #### [facility] [address] [place] [address] Dr. Zi Hernández %0.4 %Normal0.0-0.5The [facility] HospitalComment on above: Performed By: #### CBC #### [facility] [address] [place] [address] Dr. Zi Bain #2.5 103/ulNormal1.2-3.8The [facility] HospitalComment on above:Performed By: #### CBC #### [facility] [address] [place] [address] Dr. Zi Bainhocytes/100 WBC (Bld)29.0 %Mytkbj13.5-60.0The [facility] HospitalComoaklawn hospital on above:Performed By: #### CBC #### [facility] [address] [place] [address] Dr. Zi SilvaUAL DIFF REQNONormalThe Flower HospitalComment on above: Performed By: #### CBC #### [facility] [address] [place] [address] Dr. Zi Verma (RBC) [Entitic mass]27.6 ucChyywv72.7-34.0The [facility] HospitalComment on above:Performed By: #### CBC #### [facility] [address] [place] [address] Dr. Zi Verma (RBC) [Mass/Vol]31.4 g/qDDazqqn25.9-35.2The [facility] HospitalComment on above:Performed By: #### CBC #### [facility] [address] [address] [address] Zi VermaV (RBC) [Entitic vol]88.[address]FGoalup64.0-99.0The [facility] Hospitalment on above:Performed By: #### CBC #### [facility] [address] [place] [address] Dr. Zi Bueno #0.6 103/ulNormal0.3-0.8The [facility] HospitalComment on above:Performed By: #### CBC #### [facility] [address] [place] [address] Dr. Zi Jacquesocytes/100 WBC (Bld)7.2 %Normal1.7-12.0[facility] Comment on above:Performed By: #### CBC #### [facility] [address] [place] [address] Dr. Zi LevyUT #5.0 103/ulNormal1.4-6.5The [facility] HospitalComment on above:Performed By: #### CBC #### [facility] [address] [place] [address] Dr. Zi Levyutrophils/100 WBC (Bld)58.5 %Lxolfv68.0-75.0The [facility] Charles Hospitalment on above:Performed By: #### CBC #### [facility] [address] [place] [address] Dr. Zi Pettitlet mean volume (Bld) [Entitic vol]10.3 fLNormal9.5-13.5The [facility] HospitalComment on above:Performed By: #### CBC #### [facility] [address] [place] [address] Dr. Zi LujanPLT260 103/ghIqaihv415-003Bwg [facility] HospitalComment on above: Performed By: #### CBC #### [facility] [address] [place] [address] Dr. Zi LujanRBC4.67 106/ulNormal4.20-5.40The [facility]. Charles Hospitalment on above:Performed By: #### CBC #### [facility] [address] [address] [address] Zi LujanWBC8.5 103/ulNormal4.0-11.0The [facility] HospitalComment on above: Performed By: #### CBC #### [facility] [address] [address] [address] Zi LujanGLYCOHEMOGLOBIN A1Con 73-95-1279VSM RECOMMENDATIONADA THERAPEUTIC TARGET 6.0 - 7.0 ACTION SUGGESTED > 7.0[facility]auga Medical CenterComment on above:Performed By: #### A1C #### [facility] [address] [address] [address] Zi LujanGlucose [Mass/Vol]105 mg/dLNoRegency Hospital Cleveland EastComment on above:Performed By: #### A1C #### [facility] [address] [place] [address] Dr. Zi LujanHbA1c (Bld) [Mass fraction]5.3 %Normal<=6.0[facility] Comment on above:Performed By: #### A1C #### [facility] [address] [address] [address] Zi LujanLIPID PROFILEon 63-94-3381QVNW-HDL RATIO NORMSCleveland Clinic Avon HospitalComment on above:Result Comment: 3.3 - 4.4 LOW RISK 4.4 - 7.1 AVERAGE RISK 7.1 - 11.0 MODERATE RISK >11.0 HIGH RISKPerformed By: #### LIPID, BMP, TSH, LIVER #### [facility] [address] [address] [address] iZ LujanCholesterol [Mass/Vol]184 mg/dLNormal<=200[facility] Comment on above:Performed By: #### LIPID, BMP, TSH, LIVER #### [facility] [address] [address] [address] Zi LujanCholesterol in HDL [Mass/Vol]39 mg/dLCritically hxp42-05Bsd [facility] HospitalComment on above:Performed By: #### LIPID, BMP, TSH, LIVER #### [facility] [address] [address] [address] Zi Billingsesterol in LDL [Mass/Vol]106.8 mg/dLSelect Medical Specialty Hospital - [facility] on above:Performed By: #### LIPID, BMP, TSH, LIVER #### [facility] [address] [address] [address] Zi Mccall.total/Cholesterol in HDL [Mass ratio]4.7 {ratio} NormalThe Flower HospitalComoaklawn hospital on above:Performed By: #### LIPID, BMP, TSH, LIVER #### [facility] [address] [address] [address] Zi Hammer NORMAL> or = 60 mg/dl - LOW CARDIOVASCULAR RISK <40 mg/dl - HIGH CARDIOVASCULAR RISKUniversity Hospitals Geauga Medical CenterComoaklawn hospital on above:Performed By: #### LIPID, BMP, TSH, LIVER #### [facility] [address] [place] [address] Dr. Zi Vo CALC NORMALSEE BELOWNoRegency Hospital Cleveland EastComment on above:Result Comment: <100 mg/dl OPTIMAL 100 - 129 mg/dl NEAR OR ABOVE OPTIMAL 130 - 159 mg/dl BORDERLINE HIGH 160 - 189 mg/dl HIGH >190 mg/dl VERY HIGH Performed By: #### LIPID, BMP, TSH, LIVER #### [facility] [address] [place] [address] Dr. Zi LujanTriglyceride [Mass/Vol]191 mg/dLCritically high<=150The [facility] on above:Performed By: #### LIPID, BMP, TSH, LIVER #### [facility] [address] [place] [address] Dr. Zi Salas CALC38.2 mg/dLNoRegency Hospital Cleveland EastComoaklawn hospital on above: Performed By: #### LIPID, BMP, TSH, LIVER #### [facility] [address] [place] [address] Dr. Zi Roper PROFILEon 65-95-1460Nplcyqi [Mass/Vol]3.5 g/dLNormal3.4-5.0 The [facility] HospitalComoaklawn hospital on above:Performed By: #### LIPID, BMP, TSH, LIVER #### [facility] [address] [place] [address] Dr. Zi LujanAlbumin/Globulin [Mass ratio]1.0 {ratio}NormalThe Flower HospitalComment on above:Performed By: #### LIPID, BMP, TSH, LIVER #### [facility] [address] [place] [address] Dr. Zi Kingston [Catalytic activity/Vol]100 U/YZvixto07-791Apl [facility] HospitalComment on above:Performed By: #### LIPID, BMP, TSH, LIVER #### [facility] [address] [place] [address] Dr. Zi Sawyer [Catalytic activity/Vol]40 U/GTgzhak60-47Caj [facility] HospitalComment on above:Performed By: #### LIPID, BMP, TSH, LIVER #### [facility] [address] [place] [address] Dr. Zi Shi [Catalytic activity/Vol]20 U/YTtdqtd08-55Hhz [facility] HospitalComment on above:Performed By: #### LIPID, BMP, TSH, LIVER #### [facility] [address] [place] [address] Dr. Zi Romero, CONJUGATED<0.3Tgulsi2.0-0.3The [facility] HospitalComment on above:Performed By: #### LIPID, BMP, TSH, LIVER #### [facility] [address] [place] [address] Dr. Zi Antonioirubin [Mass/Vol]0.2 mg/dLNormal0.2-1.3TOhioHealth Riverside Methodist [facility] on above:Performed By: #### LIPID, BMP, TSH, LIVER #### [facility] [address] [place] [address] Dr. Zi LujanGlobulin (S) [Mass/Vol]3.5 g/dLNormalThe [facility] HospitalComment on above:Performed By: #### LIPID, BMP, TSH, LIVER #### [facility] [address] [place] [address] Dr. Yilan ChangProtein [Mass/Vol]7.0 g/dLNormal6.1-8.2[facility] Comment on above:Performed By: #### LIPID, BMP, TSH, LIVER #### [facility] [address] [place], [place] [address] Dr. Zi LujanMG MAMM SCREEN 3D RUTH CADon 67-23-1169ED MAMM SCREEN 3D RUTH CAD Patient: IRENE BAKER Exam Date: 07/17/2021 : 1970 Gender:F Ordering : DR USAMA WATTS . Admission #: [id number] Family : Order #: [id number] CLICK HERE TO VIEW EXAM RADIOLOGY REPORT PROCEDURE: MAMMOGRAM SCREENING 3D BILATERAL CAD COMPARISON: MG MAMM SCREEN RUTH W CAD, 10/28/2016. INDICATIONS: Screening mammography Calculator Name NCI Breast Cancer Risk Assessment Tool 5 Year Breast Cancer Risk 0.70% Lifetime Breast Cancer Risk 6.50% Personal Breast Cancer No Personal Ovarian Cancer No Treatments None Family Cancers None LOCATION: [facility] BREAST COMPOSITION: Heterogeneously dense,which may obscure [...] by: Jasmine Jay MD on 07/17/2021 at 11:53NoRegency Hospital Cleveland EastPROF CHEM 8 (BAS METB)on 41-78-6288Brcya gap [Moles/Vol]11.3 mmol/LNormalParma Community General HospitalComment on above:Performed By: #### LIPID, BMP, TSH, LIVER #### [facility] [address] [place], [place] [address] Dr. Zi LujanCalcium [Mass/Vol]8.6 mg/dLNormal8.5-10.1[facility] Comment on above:Performed By: #### LIPID, BMP, TSH, LIVER #### [facility] [address] [address] [address] Zi LujanChloride [Moles/Vol]106 mmol/TQfgzwu68-826IhwParma Community General Hospital Comment on above:Performed By: #### LIPID, BMP, TSH, LIVER #### [facility] [address] [address] [address] Zi LujanCO2 [Moles/Vol]24.7 mmol/XPgxfot25.0-30.0[facility] Comment on above:Performed By: #### LIPID, BMP, TSH, LIVER #### [facility] [address] [address] [address] Zi LujanCreatinine [Mass/Vol]0.92 mg/dLNormal0.52-1.04[facility] HospitalComment on above:Performed By: #### LIPID, BMP, TSH, LIVER #### [facility] [address] [address] [address] Zi MosherGFR-AF BARBADIAN>60Normal>=60The [facility] HospitalComment on above:Performed By: #### LIPID, BMP, TSH, LIVER #### [facility] [address] [place] [address] Dr. Zi Ashley-NON AF BARBADIAN>60Normal>=60[facility] HospitalComment on above:Performed By: #### LIPID, BMP, TSH, LIVER #### [facility] [address] [address] [address] Zi LujanGlucose [Mass/Vol]96 mg/xAApoamf58-710RcdParma Community General Hospital Comment on above:Performed By: #### LIPID, BMP, TSH, LIVER #### [facility] [address] [address] [address] Zi LujanPotassium [Moles/Vol]4.0 mmol/LNormal3.4-5.0[facility] Comment on above:Performed By: #### LIPID, BMP, TSH, LIVER #### [facility] [address] [address] [address] Zi LujanSodium [Moles/Vol]138 mmol/WUqiyqe088-775Vcf [facility] Comment on above:Performed By: #### LIPID, BMP, TSH, LIVER #### [facility] [address] [place] [address] Dr. Zi Pagan nitrogen [Mass/Vol]15.0 mg/dLNormal7.0-18.0The [facility] HospitalComment on above:Performed By: #### LIPID, BMP, TSH, LIVER #### [facility] [address] [place] [address] Dr. Zi Pagan nitrogen/Creatinine [Mass ratio]16.3 mg/mgNoRegency Hospital Cleveland EastComment on above:Performed By: #### LIPID, BMP, TSH, LIVER #### [facility] [address] [place] [address] Dr. Zi Michelle 50-49-2151QCH6.816 uIU/mLNormal0.470-4.680The [facility] HospitalComment on above:Performed By: #### LIPID, BMP, TSH, LIVER #### [facility] [address] [place] [address] Dr. Zi BRASWELL BELOWUniversity Hospitals Geauga Medical CenterComment on above: Result Comment: <0.34 UIU/ml HYPERTHYROID 0.34-5.60 UIU/ml EUTHYROID >5.60 UIU/ml HYPOTHYROIDPerformed By: #### LIPID, BMP, TSH, LIVER #### [facility] [address] [place] [address] Dr. Zi LujanVITAMIN D 25 OHon 53-03-7997CWW D 25-OH14.6 ng/mLNormalThe [facility]lower HospitalComment on above:Performed By: #### VITAD #### [facility] [address] [place] [address] Dr. Zi BRODYRafa Toledo HospitalComment on above: Result Comment: <20 ng/mL Vit D deficient 20 - <30 ng/mL Vit D insufficient 30 - 100 ng/mL Vit D sufficient >100 ng/mL Potential ToxicityPerformed By: #### VITAD #### [facility] [address] [address] [address] Zi Lujan Vital Signs Date TimeVital SignValuePerforming GzbkufmgcAtpupnpc79-30-3950 09:11-0500Body zgseyizalej57.6 [degF]Aliciaclaudio Brown CASH SPECIALIST Work Phone: [facility] InstituteYtphyohlmw66-01-7205 09:11-0500Diastolic blood uannxldj45 mm[Hg]Alicia Brown CASH SPECIALIST Work Phone: [phone] [place], [place] [address]Ytmilvwstq74-38-1965 09:11-0500Heart rate97 /min Alicia Brown CASH SPECIALIST Work Phone: [facility] InstituteDvzijwuguw48-54-5249 09:11-3777UgR8% (BldA) [Mass fraction]98 %Alicia Brown CASH SPECIALIST Work Phone: [facility] InstituteSfvaskzckf57-12-6563 09:11-0500Systolic blood mm[Hg]Alicia Brown CASH SPECIALIST Work Phone: [facility] InstituteFgsdwyxoxl52-50-0635 10:39-0500Body zterpv576.8 cmUsama Watts MD Work Phone: [facility] InstituteEkopzazrbn23-17-6600 10:39-0500Body mass index (BMI) [Ratio]31.86 kg/m2Usama Watts MD Work Phone: [facility] InstituteXiuawdccus57-92-8589 10:39-0500Body temperature 96.6 [degF]Usama Wtats MD Work Phone: [facility] InstituteVwigolmkis59-95-8192 10:39-0500Body dizbab17.29 kgUsama Watts MD Work Phone: [facility] InstituteLtfjdyzazd67-85-6133 10:39-0500Diastolic blood meanpkau74 mm[Hg]Usama Watts MD Work Phone: [facility] InstitutePmojkugjdo12-61-8688 10:39-0500Heart rate58 /min Usama Watts MD Work Phone: [facility] InstituteZstrashssd31-50-0445 10:39-0500Respiratory rate20 /minUsama Watts MD Work Phone: noms Fvwkqtjved59-17-8495 10:39-1209ZoZ0% (BldA) [Mass fraction]96 %Usama Watts MD Work Phone: [facility] Euioplnlir33-90-4582 10:39-0500Systolic blood bwirzaak314 mm[Hg]Usama Watts MD Work Phone: [facility] Encounters Encounter DateEncounter TypeCare ProviderFacilityStart: 04-30-2024 End: 52-83-0625Nstxst outpatient visit 25 minutesLindsmat Brown CASH SPECIALIST Work Phone: [facility] SWS UCComment on above:Viral upper respiratory illness (Primary Dx); Cough, unspecified typeStart: 04-30-2024 End: 40-53-7190jtxepdxkeeKRZSOSB N AUSTINNot AvailableStart: 04-20-2024 End: 47-23-8598Ltkakr flowsheetUsama Watts MD Work Phone: [facility] CWM FMStart: 04-20-2024 End: 73-63-3678Vbtbkl flowsheetUsama Watts MD Work Phone: [facility] CW FMStart: 04-20-2024 End: 79-88-5960Czcvhcwqe Result EncounterUsama Watts MD Work Phone: [facility] External Department UnsolicitedStart: 04-20-2024 End: 65-34-2858Eljesro encounter procedureUsama Watts MD Work Phone: [facility] Work Phone: Start: 04-20-2024 End: 49-02-5899Tiujnmib preventive med est patient 40-64yrsManderson Watts MD Work Phone: [facility] CWM FMComment on above:Annual physical exam (Primary Dx); Migraine without aura and without status migrainosus, not intractable (CMS/HCC); Dyshidrotic eczemaStart: 04-20-2024 End: 47-91-4679sqtcfdafulRGRH NADERERNot AvailableStart: 10-12-2023 End: 48-64-0842iwyvwredydOLEL NADERERNot AvailableStart: 86-79-9050Ecbkfhp encounter procedureUsama Watts MD Work Phone: [facility] HealthcareStart: 05-25-2023 End: 08-62-0837lteepqhpfuFIRI NADERERNot AvailableStart: 05-07-2023 End: 37-27-4683oioeypcovySCZKCK Emani WORKMANNot AvailableStart: 38-54-9256Qrhgyygiz for general adult medical examination without abnormal findingsDR USAMA COLBYRTjakob Marilla HospitalStart: 07-17-2021 End: 52-71-8158xhuvuqupirZL USAMA Aranda NADERERFacility:P2Cgsjc: 07-17-2021 End: 58-07-8845Bdqcthjxe for general adult medical examination without abnormal findingsDR USAMA Aranda NADERERFacility:H1 Procedures DateProcedureProcedure DetailPerforming ClinicianStart: 70-51-2467PYWNEP COVID-19/FLUAlireza Garcia DO Work Phone: Start: 57-52-0162UWQ CBC WITH AUTO DIFFUsama Watts MD Work Phone: Start: 38-63-0293AcqsnfogksaMrua Naderer MD Work Phone: Plan of Treatment DateCare ActivityDetailAuthorStart: 10-19-2024 End: 26-47-2539Cscerlf encounter oqyeyzvdk85/17/2025 9:00 AM EDT Office Visit [facility] [address] [place] [address] Usama Watts MD [address] [place] [address] [facility] FMStart: 90-07-8139Moyuinhfz for malignant neoplasm of colonNOMS HealthcareStart: 98-09-3240Fgoiqfcmd for malignant neoplasm of colonNOMS HealthcareStart: 52-26-5469Gasciywrw for malignant neoplasm of breastMammogram [facility] HealthcareComment on above:Postponed from 07/17/2022 (Patient Refused) Start: 04-20-2024 End: 73-48-3588Mnywe metabolic 1998 panel - Serum or PlasmaBasic metabolic panel Lab Routine Annual physical exam Expected: 04/20/2024 (Approximate), Expires: 04/20/2025[facility] HealthcareComment on above:Expected: 04/20/2024 (Approximate), Expires: 04/20/2025Start: 04-20-2024 End: 16-28-5451PWG W Auto Differential panel - BloodCBC and differential Lab Routine Annual physical exam Expected: 04/20/2024 (Approximate), Expires: 0 04/20/2025[facility] HealthcareComment on above:Expected: 04/20/2024 (Approximate), Expires: 04/20/2025Start: 04-20-2024 End: 13-39-3346Xoczjjtdwj A1c/Hemoglobin.total in BloodHemoglobin A1c Lab Routine Annual physical exam Expected: 04/20/2024 (Approximate), Expires: 04/20/2025[facility] Healthcare Work Phone: Comment on above:Expected: 04/20/2024 (Approximate), Expires: 04/20/2025Start: 04-20-2024 End: 35-18-1675Kjuggvq function 2000 panel - Serum or PlasmaHepatic function panel Lab Routine Annual physical exam Expected: 04/20/2024 (Approximate), Expires: 04/20/2025[facility] HealthcareComment on above:Expected: 04/20/2024 (Approximate), Expires: 04/20/2025Start: 04-20-2024 End: 85-90-2035Cfzuj 1996 panel - Serum or PlasmaLipid panel Lab Routine Annual physical exam Expected: 04/20/2024 (Approximate), Expires: 04/20/2025[facility] HealthcareComment on above:Expected: 04/20/2024 (Approximate), Expires: 04/20/2025Start: 04-20-2024 End: 02-37-7136Jlfncwanicd [Units/volume] in Serum or PlasmaTSH Lab Routine Annual physical exam Expected: 04/20/2024 (Approximate), Expires: 04/20/2025[facility] HealthcareComment on above:Expected: 04/20/2024 (Approximate), Expires: 04/20/2025Start: 04-20-2024 End: 47-55-2299Ivgkiuu encounter urvnuzoqk19/16/2025 10:15 AM EST Office Visit [facility] [address] [place] [address] Usama Watts MD [address] [place] [phone] [facility]FR[facility] FMComment on above:ArrivedStart: 66-50-1404Gyhkfexes vaccinationInfluenza Vaccine (#1)[facility] HealthcareStart: 46-98-8997Rmihojlja for malignant neoplasm of cervixNOMS HealthcareStart: 74-76-0549Gxaujpmsm for malignant neoplasm of cervixPap SmearNOMS HealthcareStart: 51-93-0723Fkeyuhfih for malignant neoplasm of colonNOME Healthcare Immunizations Immunization DateImmunizationNotesCare KeswtlfbIswqdwbq05-37-1321jltpojy, mumps and rubella virus vaccineUsama Watts MD Work Phone: [facility] InstituteAezmsbexau37-49-8877egorzvr toxoid, reduced diphtheria toxoid, and acellular pertussis vaccine, adsorbedUsama Watts MD Work Phone: [facility] Payers DatePayer CategoryPayerPolicy [id number] OTHER Member Subscriber Plan / Payer (Effective 2022-Present) Name: Irene Bakerember ID: [id number] Relation to Subscriber: Self Name: Irene Baker Payer ID: Not on file Type: Not on file Address: [address] [id number] 2..[id number] [id number] [id number] 2..0.1.157351.3.57[id number] 2..0.1.699269.3.57[id number] 2..0.1.276819.3.57[id number] 2..0.1.15989[id number] Social History DateTypeDetailFacilityStart: 36-75-0740Eyvsmkg smoking status NHISSmokes tobacco dailyNOME HealthcareHistory of tobacco useCigarette SmokerNOME HealthcareStart: 05-18-2023 End: 62-94-4590Vztanurxaa smoked current (pack per day) - Suhogiye8BDLM HealthcareStart: 60-90-2252Rqgqepb use and exposureSmokeless tobacco non-user [facility] HealthcareStart: 10-12-2023 End: 73-71-9114Vllaalagd beverage intakeEx-drinker (finding)[facility] Start: 05-18-2023 End: 12-15-4280Jldzmqifxkd, Afraid, Rape, and Kick questionnaire [HARK][facility] HealthcareWithin [...] to buy more.Never trueNOMS HealthcareStart: 04-26-2023 Tobacco Sqrcrcq10-53 cigs/dayNOMS HealthcareStart: 93-79-3266Zfb assigned at birthNot on [facility] History of Present illness Narrative 04-30-2024 Note Date & GefyMjwkKaikbwla63-63-1404 History of Present illness Narrative* Alicia Brown, CASH SPECIALIST - 04/30/2024 9:15 AM EST Images from the original note were not included. [address] , [address] [facility], [address] P: [phone] F: [phone] HPI Historian of HPI: patient Irene Baker [...] Left Turbinates: Enlarged and swollen. Mouth/Throat: Lips: [place]. Mouth: Mucous membranes are moist. Pharynx: Oropharynx [...] Present illness Narrative 04-20-2024 Note Date & CtvgDxgwNkjlwpvv32-66-1558 History of Present illness Narrative* Usama Watts [...] PRN. Relevant Medications ibuprofen 800 MG tablet opyetkayfg-cnawarcduguqz-jptgfglb 50-325-40 MG tablet Annual physical exam - [...] panel Lipid panel TSH documented in this encounterNOME Healthcare Evaluation note Note Date & TypeNoteFacilityEvaluation [...] Cough, unspecified type documented in this encounter [facility] Summary Purpose Family History No Family History Records FoundNo Family History Records Found Advance Directives No Advanced Directives Records FoundNo Advanced Directives Records Found Additional Source Comments INFORMATION SOURCE (unrecogn ized section and content) DATE CREATED AUTHOR 07/24/2021 [facility] DATE CREATED AUTHOR AUTHOR'S ORGANIZ ATION 04/30/2024 [facility] EPIC Care Teams (unrecognized sec tion and content) Team MemberRelationshipSpecialtyStart DateEnd Date Usama Watts MD [address] [place] [phone] PCP - GeneralFami Medicine05/05/23Te MemberRelationshipSpecialtyStossian DateEnd Date Usama Watts MD [address] [place] [address] [facility] - [facility]05/05/23Te MemberRelationsAlvin J. Siteman Cancer CenterialtyLumber [place] DateEnd Date Usama Watts MD [address] [place] [address] [facility] - [facility]05/05/23Te MemberRelationsAlvin J. Siteman Cancer CenterialtyLumber City DateEnd Date Usama Watts MD [address] [place] [phone] PCP - [facility]05/05/23 Reason for Visit (unrecogniz ed section and [...] BE BASED ON THE PRIMARY CLINICAL RECORDS. [facility]. provides no warranty or guarantee of the accuracy or completeness of information in this document.
[2025-02-13] MEDS: METOPROLOL TARTRATE 25 MG TABLET 12.5 MG PO ×2 (08:16→21:07)
[2025-02-13] MEDS: ERTAPENEM SODIUM 1 GM in 0.9 % SODIUM CHLORIDE 50 ML IV (08:16)
--- NOTE | 2025-02-13 08:50 | CM.NOTE ---
Rounds made with Dr. Alberto, discussed reason for admission and plan of care. Pt continues with pain to LLQ that wraps around to back/flank area. Dr. Alberto discussed pain control with pt.
--- NOTE | 2025-02-13 08:51 | PC.NURSE ---
patient took home topamax and periactin with verbal ok of Dr. Alberto
[2025-02-13 08:56] LABS: Magnesium 1.9 mg/dL (1.8-2.4)
--- NOTE | 2025-02-13 10:12 | PM.IMHP1 ---
Internal Medicine - H&P: HPI History of Present Illness Chief complaint: ABDOMINAL PAIN, INTRACTABLE ABDOMINAL PAIN Narrative: Miss Krause Is a 54-year-old female with a past medical history of uterine fibroids, tobacco abuse, and migraines who presented to the hospital last evening with a chief complaint of abdominal discomfort in her left lower quadrant. She says she was at work, the pain came on fairly suddenly around 4 PM, she came to emergency room for evaluation, CT scan was performed and showed no acute process but with consistent with fibroids, there is no evidence of stone or pyelonephritis, she was given some pain medication, IV antibiotics and discharged home as she felt better. She returned to the ER later on that evening with the same complaint once her pain medications wore off and she was subsequently admitted. This morning she tells me her pain is still in her left lower quadrant, it does seem to wrap around to her left flank but does not necessarily go all the way to her back. She denies any nausea or vomiting. She did tell me she was told she has uterine fibroids a couple of years prior, this is not a new diagnosis for her. She feels the Toradol did not really help her however the fentanyl did. It should be noted that the patient was admitted early this morning by my partner, I was not present for for her evaluation in the emergency room, this morning around 830 AM is my first time seeing the patient. Review of Systems ROS Status of ROS 10 or more systems reviewed and unremarkable except as noted in history and below PFSH PFSH Social History Highest level of school completed/degree received: Associate degree: occupational, technical, vocational program Little interest or pleasure in doing things: not at all Feeling down, depressed, or hopeless: not at all Meds Home Medications and Allergies Home Medications ?Medication ?Instructions ?Recorded ?Confirmed ?Type cyproheptadine 4 mg tablet 8 mg PO .QHS 02/13/25 02/13/25 History topiramate 100 mg tablet 100 mg PO BID 02/13/25 02/13/25 History Allergies Allergy/AdvReac Type Severity Reaction Status Date / Time sumatriptan (From Imitrex) AdvReac Mild Migraine Verified 02/13/25 02:13 Exam Narrative Exam Narrative: General: Awake alert, appears comfortable, her hair is dyed red HEENT: head atraumatic, ]moist mucous membranes CVS: regular rate and rhythm, no murmurs or gallops Respiratory: She has a very slight expiratory wheeze in her bilateral lobes, no rales or rhonchi. Symmetric expansion. No pleuritic pain with deep inspiration. GI: Soft, nondistended. There is some tenderness to palpation in her left lower quadrant, this does wrap around the left flank. Back: There is no costovertebral angle tenderness on either side, when tapping her left side she does move a little bit and almost was consistent with pain but when asked point blank if she had pain she says no. Extremity: moves all extremities, no restrictions of movements, no calf tenderness, no edema Neuro: AOx3, CN II-VII intact. Moves all extremities in all planes of motion. Constitutional Vital Signs, click to edit/add: Last Vital Signs Temp 98.2 F 02/13/25 06:50 Pulse 89 02/13/25 08:00 Resp 18 02/13/25 07:01 BP 133/82 02/13/25 07:01 Pulse Ox 97 02/13/25 07:01 O2 Del Method Room Air 02/13/25 07:54 Internal Medicine - H&P: Reslt Labs Labs: Short CBC 02/13/25 Range/Units 02:10 WBC 11.1 H (4.0-11.0) 10^3/uL Hgb 15.2 (12.0-16.0) g/dL Hct 45.2 (36.0-48.0) % Plt Count 256 (150-450) 10^3/uL BMP 02/13/25 02:10 Sodium 140 Potassium 3.7 Chloride 108 H Carbon Dioxide 22.9 BUN 11.0 Creatinine 0.64 Glucose 129 H Calcium 9.1 Liver Function 02/13/25 Range/Units 02:10 Total Bilirubin 0.5 (0.2-1.0) mg/dL AST 23 (15-37) U/L ALT 41 (14-59) U/L Alkaline Phosphatase 151 H (46-116) U/L Albumin 3.5 (3.4-5.0) g/dL Urine 02/13/25 Range/Units 05:30 Urine Color Yellow (YELLOW) Urine Clarity Clear (CLEAR) Urine pH 7.5 (5.0-9.0) Ur Specific [place] 1.010 (1.005-1.025) Urine Protein Trace (NEG/TRACE) mg/dL Urine Glucose (UA) Negative (NEGATIVE) mg/dL Assessment and Plan Assessment and Plan (1) UTI (urinary tract infection): Assessment and Plan: ? Admit MedSurg, telemetry, agree with observation status ? Her UA is consistent with infection, physical exam is consistent with the beginning stages of pyelonephritis ? Discontinue Dilaudid, will add morphine for pain ? Toradol as needed if the morphine is not working ? She received ceftriaxone last evening in emergency room, Invanz was continued this morning. Her exam is consistent with UTI/pyelonephritis, in favor of switching back to ceftriaxone. ? Follow urine cultures when available ? I do not see any evidence of nephrolithiasis on CT scan and there is no mention of it on the report. She has no history of kidney stones. (2) Abdominal pain: Assessment and Plan: ? Secondary to urinary tract infection with radiating pain around her left flank, she is passing gas and having bowel movements. ? Fibroids noted on CT, not a new finding for her. ? CT abdomen pelvis shows no evidence of diverticulitis or other intra-abdominal process (3) Leukocytosis: Assessment and Plan: Secondary to pyelonephritis (4) Pyelonephritis: Assessment and Plan: See above Plan ? DVT prophylaxis addressed ? Regular diet to be initiated after her renal ultrasound ? Full code
[2025-02-13] MEDS: MORPHINE SULFATE 2 MG/ML SYRINGE IV (12:19)
--- NOTE | 2025-02-13 14:30 | US_ITS ---
The [address] [address] Patient Name: YAJAIRA BAKER MRN: [id number] date: 1970 Sex: F Assigned Patient Location: [place] Current Patient Location: [place] Accession/Order Number: [id number] Exam Date: 02/13/2025 14:30 Report Date: 02/14/2025 08:00 At the request of: JOSE COLE MD Procedure: US renal BI BILATERAL RENAL AND BLADDER ULTRASOUND CLINICAL HISTORY: Left flank pain for the past day. COMPARISON: CT 02/12/2025 Evaluation on the left is slightly limited by intercostal scanning. Estimation of renal size is approximately 11.3 cm on the right and 11.8 cm on the left. No definite shadowing calculi or hydronephrosis are identified. There is a subcentimeter cyst at the inferior pole on the right. There is no perinephric fluid. The urinary bladder is partially distended with a volume of 153 mL. No contour or intraluminal abnormalities are seen. US/US renal BI IMPRESSION: NO OBSTRUCTIVE UROPATHY. Impression dictated by: Shruthi Shah M.D. 02/14/2025 8:00 AM Dictation Location: [place] [address] Electronically authenticated by: [id number] Y Date: 02/14/2025 08:00
[2025-02-13] MEDS: OXYCODONE HCL 5 MG TABLET PO ×2 (16:29→20:43)
[2025-02-13] MEDS: CYPROHEPTADINE HCL 4 MG TABLET 8 MG PO (21:07)
[2025-02-13] MEDS: TOPIRAMATE 100 MG TABLET PO (21:07)
[2025-02-14] VITALS: BP 123/54; PULSE 79; TEMP 37.2; O2SAT 93
[2025-02-14 04:00] VITALS: BP 140/73; PULSE 90; TEMP 36.8; O2SAT 90
[2025-02-14] MEDS: OXYCODONE HCL 5 MG TABLET PO ×3 (04:17→19:46)
[2025-02-14 05:52] LABS: Hematocrit 43.1 % (36.0-48.0); Hemoglobin 14.3 g/dL (12.0-16.0); Mean Corpuscular HGB Conc 33.2 g/dL (29.9-35.2); Mean Corpuscular Hemoglobin 29.0 pg (26.7-34.0); Mean Corpuscular Volume 87.4 fL (81.0-99.0); Platelet Count 231 10^3/uL (150-450); Red Blood Count 4.93 10^6/uL (4.20-5.40); White Blood Count 8.1 10^3/uL (4.0-11.0)
[2025-02-14 06:20] LABS: Anion Gap 11.4; Blood Urea Nitrogen 7.0 mg/dL (7.0-18.0); Calcium 8.6 mg/dL (8.5-10.1); Carbon Dioxide 23.1 mmol/L (21.0-32.0); Chloride 109 mmol/L (98-107); Estimated GFR (African America >60 (>=60 mL/min/1.73m^2); Estimated GFR (Non-African Ame >60 (>=60 mL/min/1.73m^2); Glucose 94 mg/dL (74-106); Magnesium 1.8 mg/dL (1.8-2.4); Potassium 3.5 mmol/L (3.5-5.1); Sodium 140 mmol/L (136-145)
[2025-02-14 07:04] VITALS: BP 133/80; PULSE 90; TEMP 37.3; O2SAT 90
[2025-02-14] MEDS: ERTAPENEM SODIUM 1 GM in 0.9 % SODIUM CHLORIDE 50 ML IV (08:58)
[2025-02-14] MEDS: ENOXAPARIN SODIUM 40 MG/0.4 ML SYRINGE SUBQ (08:58)
[2025-02-14] MEDS: TOPIRAMATE 100 MG TABLET PO ×2 (08:58→21:05)
[2025-02-14] MEDS: METOPROLOL TARTRATE 25 MG TABLET 12.5 MG PO ×2 (08:58→21:05)
[2025-02-14] MEDS: CYPROHEPTADINE HCL 4 MG TABLET 8 MG PO (09:08)
--- NOTE | 2025-02-14 11:56 | US_ITS ---
The [address] [address] Patient Name: YAJAIRA BAKER MRN: [id number] date: 1970 Sex: F Assigned Patient Location: [place] Current Patient Location: .[facility] Accession/Order Number: [id number] Exam Date: 02/14/2025 11:57 Report Date: 02/15/2025 08:10 At the request of: COURTNEY JERRY DO Procedure: US pelvis w/ transvaginal ULTRASOUND PELVIS WITH TRANSVAGINAL COMPARISON: CT 02/12/2025 CLINICAL DATA: Left lower quadrant pain. Fibroids on CT. Real-time ultrasound evaluation the pelvis was performed utilizing both a transabdominal and transvaginal approach. TRANSABDOMINAL: The urinary bladder is not well distended. Estimated uterine size is approximately 11.0 x 6.5 x 8.6 cm. The uterus has a lobulated contour and heterogeneous myometrial echogenicity. At least a couple discrete fibroids were seen on the right measuring 2.2 x 2.0 x 1.8 cm and 2.0 x 2.0 x 2.4 cm in size The endometrial lining is estimated at 5 - 6 mm. The right ovary is not identified. The left ovary is seen and it contains a small cystic area. TRANSVAGINAL: Transvaginal scans were performed to better evaluate the uterus and adnexa. By this approach may be endometrial lining is estimated at 8 - 9 mm. There is heterogeneous myometrium with nodular areas compatible with fibroid disease. Both ovaries are visualized. The right measures 2.7 x 2.1 x 2.6 cm. The left ovary measures 5.0 x 2.6 x 6.7 cm. There are at least 3 cystic areas within the left ovary, the largest measuring 2.5 x 2.2 x 2.5 cm. There is documentation of ovarian blood flow. No free fluid is noted. US/US pelvis w/ transvaginal IMPRESSION: FIBROID UTERUS. SMALL LEFT OVARIAN CYSTS. Impression dictated by: Shruthi Shah M.D. 02/15/2025 8:10 AM Dictation Location: [place] [address] Electronically authenticated by: [id number] Y Date: 02/15/2025 08:10
--- NOTE | 2025-02-14 11:58 | PM.PN ---
Progress Note: Subjective Subjective Interval history: Seen and evaluated this morning, her is present at bedside. She is currently sitting up in the bed, she is holding her left flank/abdomen and says the pain is slightly better though not by much. is concerned for colon cancer or an obstruction, did discuss the results of the CT scan with him and my concern for infection/pyelonephritis. There is also evidence of fibroids seen on the CT scan, certainly her pain could be from beginning stages of Trevin and also from fibroids. Discussed with the patient by ordering a pelvic and transvaginal ultrasound today to further her workup for this pain. She is agreeable for these. Exam Narrative Exam Narrative: General: Awake alert, appears comfortable, her hair is dyed red HEENT: head atraumatic, ]moist mucous membranes CVS: regular rate and rhythm, no murmurs or gallops Respiratory: She has a very slight expiratory wheeze in her bilateral lobes, no rales or rhonchi. Symmetric expansion. No pleuritic pain with deep inspiration. GI: Soft, nondistended. There is some tenderness to palpation in her left lower quadrant, this does wrap around the left flank. Back: There is no costovertebral angle tenderness on either side, when tapping her left side she does move a little bit and almost was consistent with pain but when asked point blank if she had pain she says no. Extremity: moves all extremities, no restrictions of movements, no calf tenderness, no edema Neuro: AOx3, CN II-VII intact. Moves all extremities in all planes of motion Constitutional Vital Signs, click to edit/add: Last Vital Signs Temp 99.1 F 02/14/25 07:04 Pulse 90 02/14/25 07:04 Resp 18 02/14/25 07:04 BP 133/80 02/14/25 07:04 Pulse Ox 90 L 02/14/25 07:04 O2 Del Method Room Air 02/14/25 07:04 Progress Note: Objective Labs Labs: Short CBC 02/14/25 Range/Units 05:16 WBC 8.1 (4.0-11.0) 10^3/uL Hgb 14.3 (12.0-16.0) g/dL Hct 43.1 (36.0-48.0) % Plt Count 231 (150-450) 10^3/uL BMP 02/14/25 05:16 Sodium 140 Potassium 3.5 Chloride 109 H Carbon Dioxide 23.1 BUN 7.0 Creatinine 0.52 L Glucose 94 Calcium 8.6 Progress Note: A&P Assessment and Plan (1) UTI (urinary tract infection): Assessment and Plan: ? Her UA is consistent with infection, physical exam is consistent with the beginning stages of pyelonephritis ? Continue morphine for pain ? Will add Tylenol and Advil, plan to rotate these throughout the day ? Continue ceftriaxone ? Follow urine cultures when available (2) Abdominal pain: Assessment and Plan: ? Likely secondary to urinary tract infection and beginning stages of pyelonephritis ? Fibroids were noted on CT scan, went back and discussed this further with the patient she has not had any workup or imaging of these in over 5 years since before [facility], will order transvaginal and pelvic ultrasound today to further characterize these fibroids. Pain control with Tylenol and Advil rotation as mentioned above (3) Leukocytosis: Assessment and Plan: Resolved, secondary to UTI (4) Pyelonephritis: Assessment and Plan: See above Plan ? DVT prophylaxis addressed ? Regular diet ? Full code
[2025-02-14 12:00] VITALS: BP 132/77; PULSE 84; TEMP 37.4; O2SAT 94
[2025-02-14] MEDS: POLYETHYLENE GLYCOL 3350 17 GM POWDER PACKET PO (12:13)
--- NOTE | 2025-02-14 12:59 | CM.NOTE ---
Rounds made with Dr. Alberto, discussed plan of care with pt and her . Pt continues to complain of left sided abdominal pain. Pt status changed to inpatient.
[2025-02-14 15:26] VITALS: BP 129/80; PULSE 86; TEMP 37.3; O2SAT 95
[2025-02-14 20:00] VITALS: BP 146/95; PULSE 58; TEMP 36.6; O2SAT 95
[2025-02-14] MEDS: SENNOSIDES/DOCUSATE SODIUM 1 TAB TABLET PO (21:12)
[2025-02-15] VITALS: BP 151/79; PULSE 69; TEMP 36.8; O2SAT 95
[2025-02-15 04:00] VITALS: BP 137/81; PULSE 72; TEMP 36.8; O2SAT 93
[2025-02-15] MEDS: OXYCODONE HCL 5 MG TABLET PO ×2 (06:35→11:31)
[2025-02-15 07:36] VITALS: BP 138/90; PULSE 70; TEMP 36.4; O2SAT 94
[2025-02-15 07:52] VITALS: TEMP 36.4
[2025-02-15] MEDS: CYPROHEPTADINE HCL 4 MG TABLET 8 MG PO (08:12)
[2025-02-15] MEDS: ERTAPENEM SODIUM 1 GM in 0.9 % SODIUM CHLORIDE 50 ML IV (08:12)
[2025-02-15] MEDS: ENOXAPARIN SODIUM 40 MG/0.4 ML SYRINGE SUBQ (08:12)
[2025-02-15] MEDS: METOPROLOL TARTRATE 25 MG TABLET 12.5 MG PO (08:13)
[2025-02-15] MEDS: POLYETHYLENE GLYCOL 3350 17 GM POWDER PACKET PO (08:14)
[2025-02-15] MEDS: TOPIRAMATE 100 MG TABLET PO (08:15)
--- NOTE | 2025-02-15 09:05 | CM.NOTE ---
Rounds made with Dr. Alberto, pt will discharge to home today and f/u with PCP. Dr. Alberto also spoke with Dr. Singh regarding Fibroids. Pt will f/u with Dr. Singh in office as outpt. Dr. Alberto also discussed with pt need for colonoscopy. Pt verbalizes understanding. Pt c/o blood in urine today, will send UA prior to discharge.
[2025-02-15 11:15] LABS: Glucose Urine UA NEGATIVE (NEGATIVE)
[2025-02-15 11:40] VITALS: BP 125/82; PULSE 65; TEMP 36.4; O2SAT 95
--- NOTE | 2025-02-15 13:32 | PM.DS1 ---
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 CT scan abdomen pelvis was complete and showed no acute process, no evidence of hydronephrosis, no stone but the CT was done with contrast. There are some uterine fibroids noted, no evidence of diverticulosis or lightest or obstruction. Her urinalysis was consistent with a urinary tract infection and given her clinical exam I diagnosed her with beginning stages of pyelonephritis. She was maintained on IV antibiotics throughout the admission, urine culture was sent and was still pending for the final result at the time of the discharge summary. She received 3 days of ertapenem IV. Her pain did not necessarily improve as expected with antibiotics, given that she has uterine fibroids I did order pelvic and transvaginal ultrasound. These confirmed uterine fibroids. She also notes some constipation and she has to take stool softeners scheduled to keep her maintain her regularity. She notes that there is some left lower quadrant pain that is worse with bowel movement. She has never had a colonoscopy. I did consult SENIOR PROPERTY MANAGER as the patient had some abnormal vaginal bleeding, he will be seeing her in the hospital today and likely will have close office follow-up for her fibroids though feels this is less likely to be the root cause of her pain. I also talked to her and her at length about following up for dyschezia and likely would need a colonoscopy in the near future. She reports understanding of this. The patient has been hemodynamically stable, she is tolerating food, she is ambulating well around the room, her labs have been normal since admission other than leukocytosis which resolved, she has been afebrile. At this time I feel she is hemodynamically stable to be discharged in the hospital though I did have a long discussion with her and her that her workup is not complete and that the etiology of her pain is likely either colorectal or from the fibroids. Did have a long talk about taking Metamucil daily to help maintain regularity. She will be discharged with a short prescription for oral antibiotics, Metamucil, and Tylenol and ibuprofen to alternate to help with pain relief. She will also receive a short prescription of [place] for the abdominal discomfort though I did talk to her about constipation being worse with opiates. If she is cleared from SENIOR PROPERTY MANAGER standpoint and has a bowel movement, she will be discharged in the hospital the afternoon of February 15 Time Spent with Patient Time attestation: Total time spent providing and/or coordinating discharge services: Exam Narrative Exam Narrative: General: Awake alert, no acute distress, she is ambulating around the hospital room, at time of discharge summary she was sitting up eating lunch HEENT: head atraumatic, normocephalic, moist mucous membranes Neck: supple no masses, no lymphadenopathy CVS: regular rate and rhythm, no murmurs or gallops Respiratory: clear to auscultation bilaterally, no wheezing or crackles, symmetric expansion GI: soft, nondistended, nontender, hypoactive bowel sounds, she has some left lower quadrant tenderness though it has improved since admission. Extremity: moves all extremities, no restrictions of movements, no calf tenderness, no edema Neuro: AOx3, CN II-VII intact. Moves all extremities in all planes of motion. Skin: dry, intact no rashes or lesions Constitutional Vital Signs, click to edit/add: Last Vital Signs Temp 97.5 F L 02/15/25 11:40 Pulse 65 02/15/25 11:40 Resp 16 02/15/25 11:40 BP 125/82 02/15/25 11:40 Pulse Ox 95 02/15/25 11:40 O2 Del Method Room Air 02/15/25 11:40 DS: Data Data Completed and Pending Labs on day of discharge: Labs from last 24 hours 02/15/25 11:05 Urine Color [place] A Urine Clarity Clear Urine pH 6.5 Ur Specific [place] 1.010 Urine Protein Negative Urine Glucose (UA) Negative Urine Ketones Negative Urine Occult Blood Large A Urine Nitrite Negative Urine Bilirubin Negative Urine Urobilinogen 0.2 Ur Leukocyte Esterase Negative Discharge Plan Discharge Disposition: Home, Self-Care Condition: Good Discharge Medications: New acetaminophen [Tylenol] 325 mg Tablet 650 mg PO Q6H PRN (Reason: Pain or fever) 15 Days Qty: 60 0RF sennosides-docusate sodium 8.6-50 mg Tablet 1 tab PO QD PRN (Reason: Constipation) 90 Days Qty: 90 0RF oxycodone 5 mg Tablet 5 mg PO Q6H PRN (Reason: Pain) 5 Days Qty: 20 0RF Metamucil 3.4 gram/5.4 gram powder 1 tbsp PO DAILY Qty: 660 0RF Rx Instructions: mix into at least 8 oz of water or juice before administering amoxicillin-pot clavulanate [Augmentin] 500-125 mg tablet 1 tab PO BID Qty: 10 0RF ibuprofen 800 mg tablet 800 mg PO Q8H PRN (Reason: abdominal pain) 15 Days Qty: 45 0RF Continued cyproheptadine 4 mg tablet 8 mg PO .QHS topiramate 100 mg tablet 100 mg PO BID Print Language: [place] Forms: Portal Instructions Follow Up Appointments: Dr. Billy February 21 at 11:00a Dr. Singh February 20 at 10:50a
[2025-02-15] MEDS: POLYETHYLENE GLYCOL 3350 17 GM POWDER PACKET 34 GM PO (14:20)
--- NOTE | 2025-02-16 12:50 | NUTR.NU ---
Pt denies weight loss or diminished appetite. PO intakes of regular diet are good and appear to meet her estimated nutrient requirements. No dietary concerns at this time.
--- NOTE | 2025-02-16 13:21 | CM.DCFOLLOWU ---
1st attempt, no answer, 02/16/2025
--- NOTE | 2025-02-19 11:53 | CM.DCFOLLOWU ---
Person spoke with:patient How are you feeling?doing alright How is your pain?none Did you understand your discharge instructions?yes Do you have any questions about your discharge instructions?no Were you given any prescriptions at discharge?yes Were you able to get your prescriptions filled?yes Do you understand how to take your medications as ordered?yes Do you have any questions about your follow up appointment and do you plan to keep your follow up appointment? no questions, follow ups reviewed Is there anything else that you would like to discuss?no Questions/Comments/Concerns/Other:none
== END 2025-02-15 18:26 | disposition home or self-care (01) | DRG 690 ==
LOC: ER 07:04 → MS 07:07
PROVIDERS: Internal Medicine; Admitting Provider Internal Medicine; Emergency Provider Internal Medicine; PCP Family Medicine; Visit Provider Internal Medicine
DX: N39.0 Urinary tract infection, site not specified (principal); R10.32 Left lower quadrant pain; N12 Tubulo-interstitial nephritis, not specified as acute or chronic; D25.9 Leiomyoma of uterus, unspecified; D72.829 Elevated white blood cell count, unspecified; K59.00 Constipation, unspecified; N93.9 Abnormal uterine and vaginal bleeding, unspecified
CPT/HCPCS: 36415; 76775; 76830; 76856; 80048; 80053; 81001; 81003; 83605; 83690; 83735; 84484; 85025; 85027; 93005; 96361; 96365; 96375; 96376; 99285; 99406; G0378; J1171; J1335; J1650; J2270; J2360; J2405; J3010